=== PATIENT | male | born 1950 | race Caucasian/White ===

== ENCOUNTER → 2018-07-22 12:49 | Outpatient (CLI) | payer SELFPAY ==
--- NOTE | 2018-07-22 12:54 | CT_ITS ---
STUDY: CT CHEST WITHOUT CONTRAST REASON FOR EXAM: Male, 68 years old. Hyperlipidemia. Calcium scoring examination. Radiological over read study. RADIATION DOSAGE (If Supplied By Facility): CTDIvol = ( 12.19 ) mGy, DLP = ( 243.79 ) mGycm TECHNIQUE: Transaxial imaging was performed without the administration of intravenous contrast material. Individualized dose optimization techniques were used for this CT. COMPARISON: None. FINDINGS: Mild increased interstitial markings at the lung bases suggestive of mild bibasilar scarring. There is no demonstrated pleural abnormality. There are calcifications of the coronary arteries. There are multiple small lymph nodes within the mediastinum, which are normal in size and morphology most compatible with reactive lymph hyperplasia. Normal hilar regions. Normal unenhanced pulmonary arteries. There is atherosclerotic calcification of the aortic arch . There are multi-level degenerative changes of the thoracic spine. There is no demonstrated abnormality of the visualized upper abdomen. CT/Limited Chest CT w/CCTA IMPRESSION: Coronary artery calcification. Findings suggestive of mild bibasilar linear scarring. Electronically Signed: Lewis Colon, at 13:30 EST , Service support ,
[2018-07-22 13:11] VITALS: BP 138/84; PULSE 75; RESP 16; O2SAT 97; BMI 32.5
--- NOTE | 2018-07-22 15:17 | CA.SCORE ---
Calcium Scoring Date of Study:: 07/22/18 Coronary Calcium Scoring: Coronary calcium scoring. High-resolution computed tomographic imaging of the chest was performed on 07/22/2018 with particular attention paid to the coronary arteries. Images from the examination were analyzed for the presence and extent of coronary artery calcification using the coronary calcification software. The patient tolerated the procedure well there were no complications. The results of the coronary calcification analysis are provided below. Coronary artery Left main score 0 Left anterior descending artery score 0 Left circumflex artery score 0. Right coronary artery score 0 Total Agaston score 0. The above puts the patient in the 0 percentile ranking. Conclusion: The above is suggestive of no identifiable atherosclerotic plaquing with very low cardiovascular disease risk.
== END ==
PROVIDERS: Family Provider Internal Medicine; PCP Internal Medicine; Referring Provider Internal Medicine; Visit Provider Internal Medicine
DX: E78.5 Hyperlipidemia, unspecified (principal)
CPT/HCPCS: 75571; 76380

== ENCOUNTER → 2018-09-18 11:12 | Outpatient (CLI) | payer MEDICARE, OTHER, SELFPAY ==
[2018-07-22 13:11] VITALS: BMI 32.5
--- NOTE | 2018-09-18 11:14 | US_ITS ---
STUDY: RENAL ULTRASOUND - COMPLETE REASON FOR EXAM: Male, 68 years old. Urinary incontinence TECHNIQUE: Ultrasound evaluation of the kidneys was performed with real-time and static donnelly-scale imaging. COMPARISON: None available. FINDINGS: RIGHT KIDNEY: Normal location of the right kidney, which is normal in size. The right kidney measures 11.4 cm. There is a normal cortex of the right kidney. There is an 8 mm cyst in the right kidney. There are no right renal calculi. There is no right hydronephrosis. DISTAL RIGHT URETER: There is non-visualization of the distal right ureter. There is no demonstrated right ureterovesical junction calculus. There is a visualized right ureteral jet. LEFT KIDNEY: Normal location of the left kidney, which is normal in size. The left kidney measures 11.4 cm. There is a normal cortex of the left kidney. There is no left renal mass or cyst. There are no left renal calculi. There is no left hydronephrosis. DISTAL LEFT URETER: There is non-visualization of the distal left ureter. There is no demonstrated left ureterovesical junction calculus. There is a visualized left ureteral jet. BLADDER: The urinary bladder contains a volume of 194 cc and a postvoid volume of 55 cc. There is a 9 x 7 mm hyperechoic lesion along the posterior wall of the urinary bladder which is of uncertain etiology. US/Kidney and Bladder IMPRESSION: Subcentimeter cyst in the right kidney. Otherwise, normal kidneys. No hydronephrosis. Postvoid residual of 55 cc in the urinary bladder. 0.9 x 0.7 cm hyperechoic focus along the posterior wall of urinary bladder which is of uncertain etiology. If indicated, further evaluation with CT can be performed. Electronically Signed: Ricardo Jackson, at 20:06 EDT Tel , Service support ,
== END ==
PROVIDERS: Family Provider Internal Medicine; PCP Internal Medicine; Referring Provider Internal Medicine; Visit Provider Internal Medicine
DX: N39.41 Urge incontinence (principal)
CPT/HCPCS: 76770

== ENCOUNTER → 2018-09-25 07:26 | Outpatient (CLI) | payer MEDICARE, OTHER, SELFPAY ==
[2018-07-22 13:11] VITALS: BMI 32.5
--- NOTE | 2018-09-25 06:38 | CT_ITS ---
STUDY: CT PELVIS WITH CONTRAST REASON FOR EXAM: Male, 68 years old. History of bladder mass. RADIATION DOSAGE (If Supplied By Facility): CTDIvol = ( 22.49 ) mGy, DLP = ( 1171.81 ) mGycm TECHNIQUE: Transaxial imaging of the pelvis was performed without oral contrast. 100 IV Isovue 300 was administered intravenously. Multiplanar coronal and sagittal images were reformatted. Individualized dose optimization techniques were used for this CT. COMPARISON: None. FINDINGS: Normal urinary bladder. Prostate is enlarged. It measures 4.2 cm x 3.8 cm. This causes indentation at the bladder base. Normal visualized small intestine. There are multiple colonic diverticula of the sigmoid colon consistent with chronic diverticulosis. There is no pelvic fluid. There is no pelvic lymphadenopathy or mass lesion. There is no demonstrated injury of the pelvic arteries. There is a left inguinal hernia containing fat. There are diffuse degenerative changes of the visualized lumbar spine. CT/Pelvis WITH IV Contrast IMPRESSION: Prostatic enlargement with indentation of the bladder base. No definite bladder mass is seen. Electronically Signed: Lewis Colon, at 15:27 EDT , Service support ,
[2018-09-28 11:08] LABS: CREATININE FINGERSTICK 1.56 mg/dL (0.70-1.30); EGFR FINGERSTICK 35 mL/min (>60)
== END ==
PROVIDERS: Family Provider Internal Medicine; PCP Internal Medicine; Referring Provider Internal Medicine; Visit Provider Internal Medicine
DX: N32.89 Other specified disorders of bladder (principal); Z01.812 Encounter for preprocedural laboratory examination
CPT/HCPCS: 72193; Q9967

== ENCOUNTER → 2019-09-07 | Outpatient (CLI) | payer MEDICARE, OTHER, SELFPAY ==
[2018-07-22 13:11] VITALS: BMI 32.5
--- NOTE | 2019-09-07 11:30 | MRI_ITS ---
STUDY: MRI BRAIN WITH AND WITHOUT CONTRAST REASON FOR EXAM: Male, 69 years old. Known multiple sclerosis, memory loss x 1.5 yrs, concern for NPH TECHNIQUE: Standardized multiplanar fat and water weighted pulse sequences were obtained. 20ml Dotarem via IV was administered for the contrast portion of the examination. COMPARISON: None. FINDINGS: There is disproportionate ventricular enlargement with prominence of the anterior horns and temporal tips of the bilateral lateral ventricles. There is confluent periventricular hyperintensity cloaking the lateral ventricles. There is thinning with bowing of the corpus callosum. There is moderate enlargement of the third ventricle. The findings are highly suggestive of normal pressure hydrocephalus (NPH). There are a limited number of small white matter hyperintensities, distributed throughout the deep white matter tracts of the cerebral hemispheres, consistent with mild chronic white matter ischemic changes. There is no evidence for recent intracranial ischemia or other cause of cytotoxic edema on diffusion weighted imaging (DWI). Normal bilateral basal ganglia. Normal thalami. There is no extra-axial fluid accumulation. Normal flow voids within the major intracranial circulation suggesting patency by spin echo criteria. Normal venous enhancement. There is no enhancing intra-axial or extra-axial abnormality. Normal sella turcica, pituitary gland, infundibular stalk, optic chiasm and hypothalamus. Normal tectal plate and pineal gland. Normal midbrain, isaias and medulla. Normal cerebellum. Normal basal cisterns. Normal bilateral temporal bones. Normal bilateral internal auditory canals. No demonstrated orbital abnormality, within the constraints of a routine brain study. Normal visualized paranasal sinuses. Normal calvarium and skull base. Normal visualized soft tissue structures. Normal visualized upper cervical spine. MRI/Brain W/WO Contrast IMPRESSION: Suspect normal pressure hydrocephalus. Electronically Signed: Mauricio Juárez MD at 12:47 EDT Tel , Service support ,
== END | disposition home or self-care (01) ==
LOC: MRI 11:00
PROVIDERS: PCP Internal Medicine; Referring Provider Internal Medicine; Visit Provider Internal Medicine
DX: G35 Multiple sclerosis (principal)
CPT/HCPCS: 70553; A9575

== ENCOUNTER 2019-09-11 13:00 | Inpatient (IN) | payer MEDICARE, OTHER, SELFPAY ==
[2018-07-22 13:11] VITALS: BMI 32.5
[2019-09-11] VITALS (25 sets, daily range): BP systolic 105–149; BP diastolic 69–126; PULSE 82–148; RESP 12–20; TEMP 36.1–39; O2SAT 94–100; BMI 32.5; BMI 31.7; BMI 31.8
[2019-09-11] MEDS: Etomidate 20 MG/10 ML Vial IV (13:03)
--- NOTE | 2019-09-11 13:03 | RAD_ITS ---
STUDY: X-RAY CHEST REASON FOR EXAM: Male, 69 years old. Found unresponsive TECHNIQUE: AP supine portable view. COMPARISON: PA and lateral views of the chest 01/17/2017. FINDINGS: NG tube sidehole is in the duodenal bulb area and the NG tube is further down in the descending portion of the duodenum if not in the horizontal portion of the duodenum. The NG tube tip is not included in the scan. Subglottic position of the ET tube tip. Distal repositioning will be helpful. Mild pulmonary hypoinflation. Minimal subsegmental atelectases in the left infrahilar region. No confluent infiltrates. There is no demonstrated pleural abnormality. Normal size heart. Normal mediastinum and spenser. Normal visualized pulmonary arteries. Normal visualized aortic arch and descending thoracic aorta. Normal visualized thoracic spine. Normal visualized ribs, clavicles, and shoulders. There is no demonstrated abnormality of the visualized soft tissue structures of the upper abdomen. RAD/Chest 1 View IMPRESSION: 1. Minimal subsegmental atelectasis in the left infrahilar region in a limited inspiratory chest radiograph. 2. NG tube sidehole is in the proximal duodenum. The NG tube tip is not included in the scan and this at least in the descending duodenum if not in the horizontal portion of the duodenum. 3. Subglottic position of the endotracheal tube tip. Distal repositioning will be helpful. Electronically Signed: Yoav Schuler MD at 14:29 EDT , Service support ,
--- NOTE | 2019-09-11 13:03 | CT_ITS ---
We are attempting to reach an attending provider to discuss findings. An addendum with communication details will be sent when the communication is complete. STUDY: CT BRAIN WITHOUT CONTRAST REASON FOR EXAM: Male, 69 years old. UNRESPONSIVE, HX-MS RADIATION DOSAGE (If Supplied By Facility): CTDIvol = ( 44.99 ) mGy, DLP = ( 829.85 ) mGycm TECHNIQUE: Transaxial CT imaging of the brain was performed without administration of intravenous contrast material. Coronal and sagittal reconstructions were performed. Individualized dose optimization techniques were used for this CT. COMPARISON: MRI brain with and without contrast 09/07/2019. FINDINGS: Normal soft tissue structures. Normal calvarium. Normal size ventricles and extra-axial spaces for the patient''s age. Hypodensities in the white matter of both cerebral hemispheres are chronic white matter ischemic changes. No midline shift and no mass effects. Normal basal ganglia and thalami. Normal brainstem. Normal cerebellum. There is no intracranial hemorrhage. There are no findings of an acute ischemic infarction. Normal visualized paranasal sinuses. CT/Brain/Head without Contrast IMPRESSION: 1. No CT evidence of intracranial bleeding, acute ischemic infarct or acute intracranial abnormality at this time. 2. Chronic white matter ischemic changes in both cerebral hemispheres. Electronically Signed: Yoav Schuler MD at 13:51 EDT , Service support ,
--- NOTE | 2019-09-11 13:03 | EKG12_ITS ---
Test Reason : UNRESPONSIVE Blood Pressure : / mmHG Vent. Rate : 144 BPM Atrial Rate : 055 BPM P-R Int : 000 ms QRS Dur : 096 ms QT Int : 318 ms P-R-T Axes : 000 008 114 degrees QTc Int : 492 ms Supraventricular tachycardia Nonspecific ST and T wave abnormality Abnormal ECG Confirmed by SHERRY VIVAS, ANGELLA ([id number]), editor producer FLETCHER LUND ([id number]) on 09/13/2019 10:02:24 AM Referred By: SHAAN Confirmed By:ANGELLA POWELL MD
[2019-09-11] MEDS: Rocuronium Bromide 50 MG/5 ML Vial 100 MG IV (13:04)
--- NOTE | 2019-09-11 13:07 | ED.VIS.STROK ---
History of Present Illness Chief Complaint: Unresponsive Informant: Communications Senior Associate Onset: Hours Context: Sudden Onset Timing: Continuous Quality and Location: - - Disconjugate gaze, pinpoint pupils nonverbal Current Severity: Severe Maximum Severity: Severe Worsened by: Unknown Relieved by: Nothing Associated Symptoms: - - Unknown Narrative: Patient is a 6-year-old male who was recently diagnosed with normal pressure hydrocephalus who contact his primary care physician. called squad. Upon arrival he is nonverbal. Opens eyes to noxious stimuli and localizes with the right upper extremity only. No other history is available. Spoke to when she arrived. He was last seen well at 2300 on September 09. She states she normally does not let him sleep past 10:00. He was not up at 10 PM when she went to check on him at 11 he was not very responsive. Therefore he is not a candidate for thrombolytics. Per primary care physician patient was recently started on Aricept. Prior similar symptoms: No Recent Illness/Hospitalization: Yes - Normal pressure hydrocephalus - Past Medical History (1) Normal pressure hydrocephalus Status: Acute (2) Multiple sclerosis Status: Chronic Past Medical History - Allergies and Home Meds Allergies/Adverse Reactions: Allergies No Known Allergies Allergy (Verified 09/11/19 14:36) Primary Care Physician: Ale Linares MD [Primary Care Provider] - Prior records reviewed: Yes Lives: Spouse/ Significant Other Drugs: - - Unable to determine Review of Systems ROS: Unable to Obtain STROKE Inital Vital Signs reviewed: Yes - NIHSS Initial 1a Level of Consciousness: 3 1b LOC Questions (Score 2 if aphasic/stupor): 2 1c LOC Commands (Only score 1st attempt): 2 2 Best Gaze (If aphasic, use reflexive mvmts.): 2 - Unable to determine. 3 Visual: 3 - Patient is not respond to confrontation 5 Motor Arm Right (UN = amputation/fusion): 0 5 Motor Arm Left: 2 6 Motor Leg Right: 0 6 Motor Leg Left: 2 7 Limb ataxia (Only + if out of proportion): UN 8 Sensory (Aphasia/stupor=0 or 1, coma=2): 1 9 Best Language: 3 10 Dysarthria (mute, coma=2, intubated=UN): 2 11 Extinction and Inattention (only scored if +): 2 Total Score: 24 General: Well nourished, Well developed Head: Normocephalic, Atraumatic. Negative for: Trauma, Tenderness Eyes: - - Pupils are pinpoint. Gaze is disconjugate. There is no nystagmus.. Negative for: Perrl, EOMI, Pale conjunctiva, Scleral icterus ENT: Moist mucous membranes, No rhinorrhea Neck: Supple, Nontender, No lymphadenopathy, No JVD, - - No carotid bruit. Cardiovascular: No murmurs, Normal S1, Normal S2, Tachycardia Respiratory: No distress, CTA bilaterally, Chest nontender Abdomen: Soft, Nontender, Nondistended, Normal bowel sounds, No masses Rectal: Deferred Back: Normal Inspection Extremities: Nontender Skin: Diaphoresis, Pallor, - - Swain appears slightly mottled. Neurological: Normal DTR - Babinski sign on the left equivocal Babinski sign on right. Negative for: Alert, Oriented x3, Cranial nerves II-XII grossly intact, Normal Strength, Normal Sensation, Normal Gait Diagnostic/Tx/Re-eval Dr. Linares, patient's primary care physician, call prior to his arrival. He had altered mental status according to Dr. Linares. Upon arrival patient is unresponsive to verbal or tactile stimuli. He opens his eyes to noxious stimuli and localizes on the right side only. Differential is massive stroke, intracranial bleed, will obtain CT of the head with and without contrast including CTA of the head and neck. Stroke order set was initiated. Because patient has a GCS of 8. He received 2 points for opening eyes to noxious stimuli. 1.4 no response to noxious stimuli and 5 points because he localized to pain. Patient was placed on a nonrebreather. He received 20 mg of etomidate followed by 100 mg rocuronium. He was easily orotracheally debated with use of glide scope. A 7.5 Macedonian endotracheal tube was placed. Tube is 24 cm at the teeth. Will obtain chest x-ray to verify tube placement. Patient was taken emergently to radiology suite for CT of the head and CTA of the head and neck. Impressions Brain CT 09/11/19 13:03 IMPRESSION: 1. No CT evidence of intracranial bleeding, acute ischemic infarct or acute intracranial abnormality at this time. 2. Chronic white matter ischemic changes in both cerebral hemispheres. Electronically Signed: Yoav Schuler MD at 13:51 EDT , Service support , ADDENDUM: 09/11/19 1402 IMPRESSION: 1. No CT evidence of intracranial bleeding, acute ischemic infarct or acute intracranial abnormality at this time. 2. Chronic white matter ischemic changes in both cerebral hemispheres. N.B. : The above information has been verbally conveyed by Yoav Schuler MD to Willie Bartholomew MD, on 09/11/2019 13:55:49 (ET). Electronically Signed: Yoav Schuler MD at 13:51 EDT , Service support , Chest X-Ray 09/11/19 13:03 IMPRESSION: 1. Minimal subsegmental atelectasis in the left infrahilar region in a limited inspiratory chest radiograph. 2. NG tube sidehole is in the proximal duodenum. The NG tube tip is not included in the scan and this at least in the descending duodenum if not in the horizontal portion of the duodenum. 3. Subglottic position of the endotracheal tube tip. Distal repositioning will be helpful. Electronically Signed: Yoav Schuler MD at 14:29 EDT , Service support , Head/Neck CTA 09/11/19 13:37 IMPRESSION: 1. Normal CTA head without suspicious vaso-occlusive disease of the anterior and posterior intracranial circulation. 2. Widely patent right posterior communicating artery with a hypoplastic right P1 segment. 3. Hypoplastic left vertebral artery terminating directly into the left PICA (posterior inferior cerebellar artery). 4. Widely patent bilateral common carotid arteries, bilateral common carotid bifurcations, bilateral internal and external carotid arteries and bilateral vertebral arteries. 5. Less than 20% smooth stenosis of the dominant right vertebral artery at its subclavian origin. 6. Widely patent aortic arch and origins of the great vessels. Electronically Signed: Yoav Schuler MD at 14:14 EDT , Service support , 09/11/19 13:03 Brain/Head without Contrast [CT] Stat Chest 1 View [RAD] Stat 09/11/19 13:37 CTA Head AND Neck W/ Contrast [CT] Stat Laboratory Results 09/11/19 09/11/19 09/11/19 13:10 13:10 13:10 WBC 29.9 H RBC 5.12 Hgb 16.4 Hct 46.4 MCV 90.6 MCH 32.0 MCHC 35.3 RDW Std Deviation 38.4 RDW Coeff of Keke 11.8 Plt Count 269 MPV 9.8 Immature Gran % (Auto) 1.100 H Neut % (Auto) 86.6 H Lymph % (Auto) 2.9 L Harnett % (Auto) 9.1 Eos % (Auto) 0.1 Baso % (Auto) 0.2 Absolute Neuts (auto) 25.9 H Absolute Lymphs (auto) 0.86 Nucleated RBC % 0 Differential Comment SCANNED Diff Path Review May foll PT 13.3 INR 1.1 APTT 27.1 Sodium 139 Potassium 3.6 Chloride 106 Carbon Dioxide 24.0 Anion Gap 9 BUN 20 H Creatinine 1.25 Estim Creat Clear Calc 58.57 Est GFR (MDRD) Af Amer 73 Est GFR (MDRD) Non-Af 61 BUN/Creatinine Ratio 16.0 Glucose 124 H Lactic Acid Calcium 9.6 Troponin I < 0.015 Urine Color Urine Clarity Urine pH Ur Specific [place] Urine Protein Urine Glucose (UA) Urine Ketones Urine Occult Blood Urine Nitrite Urine Bilirubin Urine Urobilinogen Ur Leukocyte Esterase Urine RBC Urine WBC Ur Squamous Epith Cells Urine Bacteria Hyaline Casts Fine Granular Casts Urine Mucus 09/11/19 09/11/19 13:10 14:48 WBC RBC Hgb Hct MCV MCH MCHC RDW Std Deviation RDW Coeff of Keke Plt Count MPV Immature Gran % (Auto) Neut % (Auto) Lymph % (Auto) Harnett % (Auto) Eos % (Auto) Baso % (Auto) Absolute Neuts (auto) Absolute Lymphs (auto) Nucleated RBC % Differential Comment Diff Path Review PT INR APTT Sodium Potassium Chloride Carbon Dioxide Anion Gap BUN Creatinine Estim Creat Clear Calc Est GFR (MDRD) Af Amer Est GFR (MDRD) Non-Af BUN/Creatinine Ratio Glucose Lactic Acid 2.0 Calcium Troponin I Urine Color Yellow Urine Clarity Cloudy Urine pH 5.0 Ur Specific [place] 1.015 Urine Protein 500 H Urine Glucose (UA) Normal Urine Ketones 15 H Urine Occult Blood 150 H Urine Nitrite Positive H Urine Bilirubin Negative Urine Urobilinogen Normal Ur Leukocyte Esterase 500 H Urine RBC 0-5 SEEN Urine WBC 5-10 SEEN Ur Squamous Epith Cells 0-5 SEEN Urine Bacteria 1+ Hyaline Casts 0-5 SEEN Fine Granular Casts 0-5 SEEN Urine Mucus RARE Urine reveals occult blood, nitrites, leukoesterase with pyuria and 1+ bacteria. Presume this is the source of his infection. Antibiotics can be changed. Chest X-Ray - ED: 1 View, Read by Radiologist, - - Tracheal tube is 4.5 cm above the talib. OG is in proper position. Limited inspiratory volume. There is increased interstitial markings which in my opinion is due to poor inspiratory volume. Cardiac silhouette is normal. No fractures noted i.e. ribs, clavicle or proximal humerus. There is no evidence of pneumothorax., 1417 - Rhythm Strip Rhythm Strip: Narrow complex tachycardia Rate: 148 Ectopy: None - EKG Initial EKG Interpretation: - - Narrow complex tachycardia rate of 147. There is no ossific ST-T wave changes noted. There is no acute ischemic changes noted. Concerned this may represent atrial flutter. - Medical Decision Making Stroke Team Activated: No Reviewed Inclusion/Exclusion criteria: Yes IV Alteplase (t-PA) Administered: No No contraindications for IV Alteplase (t-PA) administration.: No - Patient last known well 2300 which is well past acceptable time to receive Alteplase (t-PA) risks, benefits, alternative discussed: No Previously documented Spoke with the neurologist at [facility] at 1345. She reviewed CT and CTA. She sees no obvious stroke or evidence of clot in the left middle cerebral distribution, right middle cerebral distribution or the posterior circulatory system. Since there is no evidence of stroke and patient has a white count of 29.9 thousand will treat with antibiotics for unknown source. I was asked to see the patient at 1414. He is now following commands. His blood pressure is improved. He is slightly out of sync with the ventilator. Will place on small dose of propofol for sedation. Critical care time (excluding procedures): 30-74 minutes - Critical care time 42 minutes this included discussion with paramedics and review of prior records. Discussion with consultants. Arrangement for admission/transfer and direct patient care. This also included time to perform physical and documentation of history and physical. ED Disposition - Plan for ED Patient: Disposition: Acute Care Hospital [facility] Diagnosis: Respiratory failure requiring intubation, Sepsis due to urinary tract infection Referrals: Ale Linares MD [Primary Care Provider] -
--- NOTE | 2019-09-11 13:22 | ED.RN ---
patient opening eyes but unable to follow commands and is incontinent.
[2019-09-11 13:30] LABS: Absolute Lymphocyte Count 0.86 X10^3/uL (0.83-4.51); Absolute Neutrophil Count 25.9 X10^3/uL (2.0-7.7); Basophil# 0.07 X10^3/uL; Basophil% 0.2 % (0-1); Eosinophil# 0.02 X10^3/uL; Eosinophils% 0.1 % (0-5); Hematocrit 46.4 % (40-54); Hemoglobin 16.4 g/dL (13.0-16.5); Lymphocyte # 0.86 X10^3/ul (4.0); Lymphocyte % 2.9 % (19-41); Mean Corp Hgb Conc 35.3 g/dL (32-36); Mean Corpuscular Volume 90.6 fL (80-94); Mean Platelet Vol. 9.8 fl (6.2-12.0); Monocyte# 2.73 X10^3/uL; Monocyte% 9.1 % (0-10); NRBC Flagged by Analyzer 0 % (0-5); Neutrophil # 25.88 X10^3/uL (2.7-7.7); Neutrophil % 86.6 % (47-70); POSITIVE DIFFERENTIAL YES; Platelet Count 269 K/mm3 (150-450); RBC Distribution Width CV 11.8 % (11.6-14.6); RBC Distribution Width SD 38.4 fl (35.1-43.9); Red Blood Count 5.12 M/mm3 (4.6-6.2); White Blood Count 29.9 K/mm3 (4.4-11.0)
[2019-09-11 13:33] LABS: Differential Indicated SCAN CRITERIA MET
--- NOTE | 2019-09-11 13:37 | CT_ITS ---
STUDY: CTA HEAD AND NECK WITH CONTRAST REASON FOR EXAM: Male, 69 years old. UNRESPONSIVE, HX-MS, MEMORY LOSS X 1.5 YRS. RADIATION DOSAGE (If Supplied By Facility): CTDIvol = ( 20.7 ) mGy, DLP = ( 776.31 ) mGycm TECHNIQUE: CT angiography was performed with a multi-detector CT scanner. Data acquisition was obtained from the skull base through the vertex following intravenous administration of 100 mL of Isovue-370. MIP images were reconstructed from the axial data set. Post-processing of the angiographic images was performed, with multiplanar reformation and 3D reconstruction. Individualized dose optimization techniques were used for this CT. COMPARISON: MRI brain with and without contrast 09/07/2019. CT brain without contrast 09/11/2019. FINDINGS: Normal bilateral petrous carotid arteries. Normal right cavernous carotid artery with a normal supraclinoid bifurcation. Normal left cavernous carotid artery with a normal supraclinoid bifurcation. Normal right A1 segment of the anterior cerebral artery. Normal left A1 segment of the anterior cerebral artery. Normal intact anterior communicating artery (ACOM). Normal bilateral A2 segments of the anterior cerebral arteries. Normal right M1 and M2 segments of the middle cerebral arteries, with a normal M1 bifurcation. Normal left M1 and M2 segments of the middle cerebral arteries, with a normal M1 bifurcation. Widely patent right posterior communicating artery (PCOM) with a hypoplastic right P1 segment. Normal left posterior communicating artery (PCOM). Normal bilateral vertebral arteries. The right is dominant. The left terminates directly into the left PICA. Normal basilar artery with a normal basilar bifurcation. The visualized bilateral superior cerebellar (SCA) arteries are normal. Hypoplastic right P1 segment. Normal bilateral P1, P2 and visualized P3 segments of the posterior cerebral arteries. There is no demonstrated aneurysm of the [place]. There is no demonstrated abnormality of the visualized brain. AORTIC ARCH: Normal visualized aortic arch. Normal origins of the brachiocephalic, left common carotid, and left subclavian arteries. RIGHT CAROTID ARTERIES: Normal right common carotid artery (CCA). Normal right internal carotid bulb. Normal origin of the right internal carotid (ICA) artery without a hemodynamically significant stenosis. Normal visualized cervical portion of the right internal carotid artery. Normal origin of the right external carotid artery (ECA). LEFT CAROTID ARTERIES: Normal left common carotid artery (CCA). Normal left internal carotid bulb. Normal origin of the left internal carotid (ICA) artery without a hemodynamically significant stenosis. Normal visualized cervical portion of the left internal carotid artery. Normal origin of the left external carotid artery (ECA). VERTEBRAL ARTERIES: Normal bilateral vertebral arteries. The left is hypoplastic and terminates directly into the left PICA (posterior inferior cerebellar artery does). Less than 20% spinal stenosis at the subclavian origin of the dominant right vertebral artery. CT/CTA Head AND Neck W/ Contrast IMPRESSION: 1. Normal CTA head without suspicious vaso-occlusive disease of the anterior and posterior intracranial circulation. 2. Widely patent right posterior communicating artery with a hypoplastic right P1 segment. 3. Hypoplastic left vertebral artery terminating directly into the left PICA (posterior inferior cerebellar artery). 4. Widely patent bilateral common carotid arteries, bilateral common carotid bifurcations, bilateral internal and external carotid arteries and bilateral vertebral arteries. 5. Less than 20% smooth stenosis of the dominant right vertebral artery at its subclavian origin. 6. Widely patent aortic arch and origins of the great vessels. Electronically Signed: Yoav Schuler MD at 14:14 EDT , Service support ,
[2019-09-11 13:39] LABS: International Normalized Ratio 1.1; Partial Thromboplast Time 27.1 Seconds (24.1-36.2); Prothrombin Time (Protime)PT. 13.3 SECONDS (11.7-14.9)
[2019-09-11 13:48] LABS: Anion Gap 9 (5-15); BUN 20 mg/dL (7-18); Calcium,Total 9.6 mg/dL (8.5-10.1); Chloride 106 mmol/L (98-107); Creatinine, Serum 1.25 mg/dL (0.70-1.30); EST Glomerular Filtration Rate 61 mL/min (>60); Est Glom Filt Rate - Afr Amer 73 mL/min (>60); Estimated Creatinine Clearance 58.57 ml/min; Glucose 124 mg/dL (74-106); Potassium 3.6 mmol/L (3.5-5.1); Sodium Level 139 mmol/L (136-145)
--- NOTE | 2019-09-11 13:55 | ED.RN ---
PATIENT IS NOW RESPONDING TO VERBAL STIMULI AND ABLE TO FOLLOW COMMANDS. DR. GARDUNO NOTIFIED.
--- NOTE | 2019-09-11 14:07 | CM.ED ---
Social Work Consult: Unresponsive Met patient spouse, active listening and support provided. Dr. Bartholomew updating patient spouse on medical condition of patient. Patient spouse with family member now present. Patient prior level of functioning was independent and was doing fine per patient spouse. Patient does have a history of MS. Will continue to follow as needed. Enma Whelan MSW, FELIX
[2019-09-11 14:14] LABS: Differential Comment SCANNED
[2019-09-11] MEDS: Propofol 200 MG/20 ML Vial 40 MG IV BOLUS (14:25)
[2019-09-11] MEDS: Propofol 10MG/Ml 1,000 MG/100 ML Bottle 6.4 MG CONT INF (14:33)
[2019-09-11 14:54] LABS: Color, Urine Yellow (Yellow); Glucose, Dipstick Normal (Normal); Ketone-Dipstick 15 mg/dl (Negative); Leukocyte Esterase-Dipstick 500 /ul (Negative); Nitrite-Dipstick Positive (Negative); Occult Blood-Urine 150 /ul (Negative); Protein-Dipstick 500 mg/dl (Negative); Specific Gravity, Urine 1.015 (1.002-1.030); Urine Bilirubin Dipstick Negative (Negative); Urine Clarity Cloudy (Clear); Urine Urobilinogen Normal (Normal)
--- NOTE | 2019-09-11 14:58 | ED.RN ---
UNABLE TO COMPLETE NIH STROKE SCALE. PATIENT IS UNRESPONSIVE AND NOT FOLLOWING COMMANDS.
[2019-09-11 15:00] LABS: Bacteria 1+ /hpf (None Seen); Fine Granular Cast- Urine 0-5 SEEN /lpf (0-5); Hyaline Cast 0-5 SEEN /lpf (0-5); Mucous, Urine RARE /hpf (<or=2+); Red Blood Cells-Urine 0-5 SEEN /hpf (0-5); Squamous Epithelial Cells - UA 0-5 SEEN /hpf (0-5); White Blood Cells 5-10 SEEN /hpf (0-5)
--- NOTE | 2019-09-11 15:05 | ED.RN ---
UNABLE TO PERFORM NIH STROKE SCALE, PATIENT INTUBATED.
--- NOTE | 2019-09-11 15:06 | ED.RN ---
UNABLE TO PERFORM NIH STROKE SCALE, PATIENT INTUBATED.
--- NOTE | 2019-09-11 15:47 | HP.PCM_ITS ---
Problem List (1) Respiratory failure requiring intubation Status: Acute (2) Sepsis due to urinary tract infection Status: Acute (3) Multiple sclerosis Status: Chronic (4) Normal pressure hydrocephalus Status: Acute History of Present Illness Date of Admission: 09/11/19 Chief Complaint: Unresponsiveness The patient is a 69 year old M who was brought to the emergency department by the family on account of unresponsiveness. Patient was apparently in his usual state of health when he became responsive around noon on the day of his admis davey. Patient was brought to the emergency department initial head CT was negative for acute CVA. Patient was however found to have markedly elevated WBC count 30,000. Patient urinalysis was slightly abnormal with positive nitrites and leukocyte esterase of 500 with 5-10 WBC count in the urine. Patient was apparently not protecting his airway resulting in patient being intubated in the ED by Dr. Bartholomew with a working diagnosis of acute encephalopathy as a result of sepsis secondary to acute cystitis was made admitted for further inpatient evaluation. Past Medical History Past Medical History (Chronic Problems): Chronic Problems Multiple sclerosis (Chronic) Allergies No Known Allergies Allergy (Verified 09/11/19 14:36) Lives: Spouse/ Significant Other Drugs: - - Unable to determine - *Family History Maternal History Items: - - Unable to obtain patient on the vent Review of Systems Unable to obtain accurate/complete ROS d/t: Patient on the vent VTE Information - Inpt Only VTE Present on Admission: No VTE Mechan Device Prophylaxis: SCD's VTE Pharm Prophylaxis ordered?: Yes Patient Problems: Active and Suspected Problems Respiratory failure requiring intubation (Acute) Sepsis due to urinary tract infection (Acute) Objective: GENERAL: Sedated on the vent HEENT: ET tube in place EYES; Anicteric, NECK; supple, normal thyroid, RESPIRATORY: Diminished to auscultation CARDIOVASCULAR: Regular S1 S2, GI: soft, normoactive bowel sounds, : No Renal angle tenderness; EXTREMITIES: No edema, no clubbing, MUSCULOSKELETAL: no muscle waisting NEURO: Sedated on the vent SKIN: No Rash - Physical Exam Vitals/I&O's: Vital Signs Temp Pulse Resp BP Pulse Ox 98.3 F 116 H 18 105/88 H 100 09/11/19 15:37 09/11/19 15:37 09/11/19 15:37 09/11/19 15:37 09/11/19 15:37 Oxygen Flow Rate (L/min) 185 Oxygen Delivery Method Mechanical Ventilator Weight: 105.9 kg Body Mass Index (BMI) 32.5 Finger Stick Blood Glucose 130 Intake and Output for Last 24 Hours 09/09/19 09/10/19 09/11/19 23:59 23:59 23:59 Intake Total 106.72 / 106.72 Balance 106.72 / 106.72 Laboratory Results 09/11/19 13:10: WBC 29.9 H, RBC 5.12, Hgb 16.4, Hct 46.4, MCV 90.6, MCH 32.0, MCHC 35.3, RDW Std Deviation 38.4, RDW Coeff of [place] 11.8, Plt Count 269, MPV 9.8, Immature Gran % (Auto) 1.100 H, Neut % (Auto) 86.6 H, Lymph % (Auto) 2.9 L, Bartholomew % (Auto) 9.1, Eos % (Auto) 0.1, Baso % (Auto) 0.2, Absolute Neuts (auto) 25.9 H, Absolute Lymphs (auto) 0.86, Nucleated RBC % 0, Differential Comment SCANNED, Diff Path Review September09/11/19 13:10: PT 13.3, INR 1.1, APTT 27.1 09/11/19 13:10: Sodium 139, Potassium 3.6, Chloride 106, Carbon Dioxide 24.0, Anion Gap 9, BUN 20 H, Creatinine 1.25, Estim Creat Clear Calc 58.57, Est GFR (MDRD) Af Amer 73, Est GFR (MDRD) Non-Af 61, BUN/Creatinine Ratio 16.0, Glucose 124 H, Calcium 9.6, Troponin I < 0.015 09/11/19 13:10: Lactic Acid 2.0 09/11/19 14:48: Urine Color Yellow, Urine Clarity Cloudy, Urine pH 5.0, Ur Specific [place] 1.015, Urine Protein 500 H, Urine Glucose (UA) Normal, Urine Ketones 15 H, Urine Occult Blood 150 H, Urine Nitrite Positive H, Urine Bilirubin Negative, Urine Urobilinogen Normal, Ur Leukocyte Esterase 500 H, Urine RBC 0-5 SEEN, Urine WBC 5-10 SEEN, Ur Squamous Epith Cells 0-5 SEEN, Urine Bacteria 1+, Hyaline Casts 0-5 SEEN, Fine Granular Casts 0-5 SEEN, Urine Mucus RARE Current Medications Vancomycin HCl 2,000 mg/ (Sodium Chloride) 540 mls @ 250 mls/hr IV X1 ONE Stop: 09/11/19 16:39 Last Admin: 09/11/19 14:49 Dose: 250 mls/hr Documented by: Propofol (Diprivan) 1,000 mg in 100 mls @ 6.354 mls/hr CONT INF .Q12H TEDDY; Protocol Last Titration: 09/11/19 15:36 Dose: 15 mcg/kg/min, 9.5 mls/hr Documented by: Labetalol HCl (Trandate) 20 mg IV X1 PRN PRN Reason: BLOOD PRESSURE Assessment/Plan All Active Problems Normal pressure hydrocephalus (Acute) Respiratory failure requiring intubation (Acute) Sepsis due to urinary tract infection (Acute) Patient is a 69-year-old gentleman admitted with unresponsiveness and respiratory failure in addition to sepsis secondary to UTI 1. Acute encephalopathy Suspected to be secondary to sepsis as a result of UTI acute CVA was ruled out with a negative head CT 2. Acute hypoxic respiratory failure ?Secondary to patient being encephalopathic. Patient was intubated in the ED. x-ray obtained demonstrated Minimal subsegmental atelectasis in the left infrahilar region in a limited inspiratory chest radiograph patient currently being managed with ICU vent management order set with consultation placed to Dr. Farris with intensive care 3. Sepsis secondary to UTI ?Patient presented with acute encephalopathy. Had only mild pyuria with positive nitrites as well as leukocyte esterase. Rocephin initiated per protocol urine and blood culture sent 4. Multiple sclerosis ?Currently stable 5. DVT prophylaxis ~ on enoxaparin Clinical Impression(s) from Imaging Studies Brain CT 09/11/19 13:03 IMPRESSION: 1. No CT evidence of intracranial bleeding, acute ischemic infarct or acute intracranial abnormality at this time. 2. Chronic white matter ischemic changes in both cerebral hemispheres. Electronically Signed: Yoav Schuler MD at 13:51 EDT , Service support , ADDENDUM: 09/11/19 4725 IMPRESSION: 1. No CT evidence of intracranial bleeding, acute ischemic infarct or acute intracranial abnormality at this time. 2. Chronic white matter ischemic changes in both cerebral hemispheres. N.B. : The above information has been verbally conveyed by Yoav Schuler MD to Willie Bartholomew MD, on 09/11/2019 13:55:49 (ET). Electronically Signed: Yoav Schuler MD at 13:51 EDT , Service support , Chest X-Ray 09/11/19 13:03 IMPRESSION: 1. Minimal subsegmental atelectasis in the left infrahilar region in a limited inspiratory chest radiograph. 2. NG tube sidehole is in the proximal duodenum. The NG tube tip is not included in the scan and this at least in the descending duodenum if not in the horizontal portion of the duodenum. 3. Subglottic position of the endotracheal tube tip. Distal repositioning will be helpful. Electronically Signed: Yoav Schuler MD at 14:29 EDT , Service support , Head/Neck CTA 09/11/19 13:37 IMPRESSION: 1. Normal CTA head without suspicious vaso-occlusive disease of the anterior and posterior intracranial circulation. 2. Widely patent right posterior communicating artery with a hypoplastic right P1 segment. 3. Hypoplastic left vertebral artery terminating directly into the left PICA (posterior inferior cerebellar artery). 4. Widely patent bilateral common carotid arteries, bilateral common carotid bifurcations, bilateral internal and external carotid arteries and bilateral vertebral arteries. 5. Less than 20% smooth stenosis of the dominant right vertebral artery at its subclavian origin. 6. Widely patent aortic arch and origins of the great vessels. Electronically Signed: Yoav Schuler MD at 14:14 EDT , Service support , Inpatient E&M: [id number] Init Hosp L3
--- NOTE | 2019-09-11 16:18 | CM.ED ---
Social Work Telephone call to patient spouse, updating patient spouse on patient being admitted to ICU and what room. No further questions. Spouse reminded about visitation policy at this time and provided with number for ICU with any questions. Enma COY, FELIX
[2019-09-11 16:57] LABS: D-Dimer Quantitative (DVT/PE) 0.72 FEU/ug/m (0.27-0.49)
[2019-09-11 17:06] LABS: AST(SGOT) 29 U/L (15-37); Alanine Aminotransfer ALT/SGPT 56 U/L (16-61); Albumin, Serum 4.2 g/dL (3.2-5.0); Alkaline Phosphatase 91 U/L (45-117); Bilirubin, Direct 0.29 mg/dL (0.00-0.30); CPK Total, Creatine Kinase 95 U/L (39-308); Globulin 3.6 g/dL (2.2-4.2); Protein, Total 7.8 g/dL (6.4-8.2)
[2019-09-11 17:30] LABS: Procalcitonin 1.27 ng/mL (0.00-0.09)
[2019-09-11 17:46] LABS: Reflex Lactate? Y
[2019-09-11 18:45] LABS: Bedside Glucose 110 mg/dL (70-110)
[2019-09-11] MEDS: Acetaminophen 650 MG Suppository RECTAL (20:04)
[2019-09-11] MEDS: Propofol 10MG/Ml 1,000 MG/100 ML Bottle 12.7 MG CONT INF (20:04)
[2019-09-11] MEDS: Chlorhexidine 15 ML PO (20:05)
[2019-09-11 20:11] LABS: M R Staph aureus DNA By PCR Negative (Negative); Probe Check PASS; Specimen Processing Control PASS
[2019-09-11] MEDS: Ceftriaxone 1 GM/50 ML BAG IV (21:51)
[2019-09-12] VITALS (32 sets, daily range): BP systolic 94–175; BP diastolic 58–108; PULSE 80–114; RESP 12–28; TEMP 37.1–39.1; O2SAT 91–100
[2019-09-12] MEDS: Propofol 10MG/Ml 1,000 MG/100 ML Bottle 12.7 MG CONT INF (03:58)
[2019-09-12 04:35] LABS: Phosphorus 2.5 mg/dL (2.5-4.9)
[2019-09-12] MEDS: TITRATION PARAMETER CHANGE 1 EACH IV (04:45)
[2019-09-12 04:47] LABS: Absolute Neutrophil Count 15.1 X10^3/uL (2.0-7.7); Basophil# 0.05 X10^3/uL; Basophil% 0.3 % (0-1); Eosinophils% 1.1 % (0-5); Hematocrit 42.8 % (40-54); Hemoglobin 15.3 g/dL (13.0-16.5); Lymphocyte % 4.6 % (19-41); Mean Corp Hgb Conc 35.7 g/dL (32-36); Mean Corpuscular Hgb 32.9 pg (27.0-32.0); Mean Platelet Vol. 10.2 fl (6.2-12.0); Monocyte# 1.24 X10^3/uL; Monocyte% 7.1 % (0-10); NRBC Flagged by Analyzer 0 % (0-5); Neutrophil # 15.13 X10^3/uL (2.7-7.7); Neutrophil % 86.3 % (47-70); Platelet Count 200 K/mm3 (150-450); RBC Distribution Width CV 12.1 % (11.6-14.6); RBC Distribution Width SD 40.4 fl (35.1-43.9); Red Blood Count 4.65 M/mm3 (4.6-6.2); White Blood Count 17.5 K/mm3 (4.4-11.0)
[2019-09-12 05:03] LABS: Anion Gap 7 (5-15); BUN 18 mg/dL (7-18); BUN/Creat Ratio 17.6 RATIO (10-20); Calcium,Total 8.5 mg/dL (8.5-10.1); Chloride 110 mmol/L (98-107); Creatinine, Serum 1.02 mg/dL (0.70-1.30); EST Glomerular Filtration Rate 77 mL/min (>60); Est Glom Filt Rate - Afr Amer 93 mL/min (>60); Estimated Creatinine Clearance 69.58 ml/min; Glucose 125 mg/dL (74-106); Magnesium 1.9 mg/dL (1.6-2.6); Potassium 3.8 mmol/L (3.5-5.1); Sodium Level 139 mmol/L (136-145)
--- NOTE | 2019-09-12 06:02 | CON.PCM_ITS ---
Reason for Consult Date of Consultation: 09/12/19 Reason for Consultation: Acute respiratory failure History of Present Illness: The patient is a 69-year-old male, with a history as outlined below, who presented to the emergency department on September 10 with acute encephalopathy. The patient does apparently have a history of normal pressure hydrocephalus. History pertinent to the patient's hospitalization was obtained primarily via chart review, as the patient is currently intubated and there is no family available at the bedside. On presentation to the emergency department, the patient was noted to be afebrile but was tachycardic and hypoxemic. Laboratory evaluation revealed an elevated white blood cell count of 30,000. D-dimer was mildly elevated to 0.72. Chemistry profile was unremarkable. Lactic acid peaked at 3.0. Procalcitonin was only mildly elevated at 1.27. Urine analysis was positive for nitrites and leukocyte esterase. MRSA screen was negative. CT head was negative. CTA head neck was also unremarkable. The patient was noted to have a GCS score of 8 in the emergency department. Over concerns for airway protection, the patient was intubated. The patient was placed on antimicrobials and admitted to the medical intensive care unit for further management. Overnight, the patient was febrile with a T-max of 102.4 ?F. He did receive Tylenol and is currently on a cooling blanket. Although the patient did not have a spontaneous breathing trial this morning, following my evaluation of him, he was placed on one. The patient sedation was placed on hold and he was able to complete a spontaneous breathing trial without complication. He was alert and following commands appropriately. The patient was therefore extubated under my direct supervision at approximately 0900 hrs. Past Medical History Past Medical History (Chronic Problems): Chronic Problems (Last Updated 09/12/19 @ 02:52 by Pamela Andres) Multiple sclerosis (Chronic) Medical History: Medical History (Last Updated 09/12/19 @ 02:52 by Pamela Andres) Multiple sclerosis G35 Normal pressure hydrocephalus G91.2 Allergies No Known Allergies Allergy (Verified 09/11/19 14:36) Home Medications: Ambulatory Orders Medication Instructions Recorded Donepezil HCl 5 mg PO QHS 09/11/19 Losartan Potassium 50 mg PO DAILY 09/11/19 Paroxetine [Paxil] 10 mg PO DAILY 09/11/19 Thyroid,Pork [Vandiver Thyroid] 120 mg PO DAILY 09/11/19 Latanoprost 0.005% [Xalatan 1 drp EACH EYE QHS 09/12/19 Opthalmic] Timolol 0.5% [Timoptic] 1 drp EACH EYE QHS 09/12/19 Lives: Spouse/ Significant Other Smoking Status: Unknown if ever smoked Drugs: - - Unable to determine - *Family History Maternal History Items: - - Unable to obtain patient on the vent Review of Systems Unable to obtain accurate/complete ROS d/t: Due to current intubation and mechanical ventilation status. Patient Problems: Active and Suspected Problems (Last Updated 09/12/19 @ 02:52 by Pamela Andres) Respiratory failure requiring intubation (Acute) Sepsis due to urinary tract infection (Acute) Objective: The patient's most recent lab work, culture data and imaging studies have all been personally reviewed. Blood, urine and sputum cultures are pending. - Physical Exam Vitals/I&O's: Vital Signs Temp Pulse Resp BP Pulse Ox 99.0 F 100 22 H 117/83 H 99 09/12/19 05:00 09/12/19 05:00 09/12/19 05:00 09/12/19 05:00 09/12/19 05:00 Oxygen Flow Rate (L/min) 185 Oxygen Delivery Method Mechanical Ventilator Weight: 232 lb 12.93 oz Body Mass Index (BMI) 31.7 Finger Stick Blood Glucose 130 Intake and Output for Last 24 Hours 09/10/19 09/11/19 09/12/19 23:59 23:59 23:59 Intake Total 1730.55 / 1743.25 912.35 / 912.35 Output Total 450 / 450 275 / 275 Balance 1280.55 / 1293.25 637.35 / 637.35 General: Alert, Cooperative, - - Intubated and mechanically ventilated. Currently tolerating spontaneous mode of mechanical ventilation. HEENT: Atraumatic, PERRLA, Normocephalic Oral: No Gingival or Mucosal Lesions/ Ulcerations, - - Endotracheal and OG tubes in place Neck: Supple, No Nodes, Trachea Midline Lungs: Normal air movement, No rhonchi, No wheeze, No rales Cardiovascular: Regular rate, Regular Rhythm, Normal S1, Normal S2 Abdomen: Bowel Sounds Present, Soft, Non Tender Extremities: No clubbing, No cyanosis, No edema Skin: No breakdown Musculoskeletal: No Muscle Wasting Lymphatic: No Cervical, Supraclavicular, or Inguinal Adenopathy Neurological: - - No focal neurological deficits. Able to follow simple commands. Moves extremities spontaneously. Labs (Last 48 Hours) 09/11/19 09/11/19 09/11/19 13:10 13:10 13:10 WBC 29.9 H RBC 5.12 Hgb 16.4 Hct 46.4 MCV 90.6 MCH 32.0 MCHC 35.3 RDW Std Deviation 38.4 RDW Coeff of Keke 11.8 Plt Count 269 MPV 9.8 Immature Gran % (Auto) 1.100 H Neut % (Auto) 86.6 H Lymph % (Auto) 2.9 L Long % (Auto) 9.1 Eos % (Auto) 0.1 Baso % (Auto) 0.2 Absolute Neuts (auto) 25.9 H Absolute Lymphs (auto) 0.86 Nucleated RBC % 0 Differential Comment SCANNED Diff Path Review May foll PT 13.3 INR 1.1 APTT 27.1 D-Dimer Quant (PE/DVT) Sodium 139 Potassium 3.6 Chloride 106 Carbon Dioxide 24.0 Anion Gap 9 BUN 20 H Creatinine 1.25 Estim Creat Clear Calc 58.57 Est GFR (MDRD) Af Amer 73 Est GFR (MDRD) Non-Af 61 BUN/Creatinine Ratio 16.0 Glucose 124 H Lactic Acid Calcium 9.6 Phosphorus Magnesium Total Bilirubin Direct Bilirubin AST ALT Alkaline Phosphatase Total Creatine Kinase Troponin I < 0.015 C-React Prot Ext Range Total Protein Albumin Globulin Procalcitonin Urine Color Urine Clarity Urine pH Ur Specific [place] Urine Protein Urine Glucose (UA) Urine Ketones Urine Occult Blood Urine Nitrite Urine Bilirubin Urine Urobilinogen Ur Leukocyte Esterase Urine RBC Urine WBC Ur Squamous Epith Cells Urine Bacteria Hyaline Casts Fine Granular Casts Urine Mucus MRSA (PCR) POC Glucose 09/11/19 09/11/19 09/11/19 13:10 13:10 13:10 WBC RBC Hgb Hct MCV MCH MCHC RDW Std Deviation RDW Coeff of Keke Plt Count MPV Immature Gran % (Auto) Neut % (Auto) Lymph % (Auto) Long % (Auto) Eos % (Auto) Baso % (Auto) Absolute Neuts (auto) Absolute Lymphs (auto) Nucleated RBC % Differential Comment Diff Path Review PT INR APTT D-Dimer Quant (PE/DVT) 0.72 H* Sodium Potassium Chloride Carbon Dioxide Anion Gap BUN Creatinine Estim Creat Clear Calc Est GFR (MDRD) Af Amer Est GFR (MDRD) Non-Af BUN/Creatinine Ratio Glucose Lactic Acid 2.0 Calcium Phosphorus Magnesium Total Bilirubin 1.30 H Direct Bilirubin 0.29 AST 29 ALT 56 Alkaline Phosphatase 91 Total Creatine Kinase 95 Troponin I C-React Prot Ext Range 19.30 H Total Protein 7.8 Albumin 4.2 Globulin 3.6 Procalcitonin Urine Color Urine Clarity Urine pH Ur Specific [place] Urine Protein Urine Glucose (UA) Urine Ketones Urine Occult Blood Urine Nitrite Urine Bilirubin Urine Urobilinogen Ur Leukocyte Esterase Urine RBC Urine WBC Ur Squamous Epith Cells Urine Bacteria Hyaline Casts Fine Granular Casts Urine Mucus MRSA (PCR) POC Glucose 09/11/19 09/11/19 09/11/19 13:10 14:48 16:40 WBC RBC Hgb Hct MCV MCH MCHC RDW Std Deviation RDW Coeff of Keke Plt Count MPV Immature Gran % (Auto) Neut % (Auto) Lymph % (Auto) Long % (Auto) Eos % (Auto) Baso % (Auto) Absolute Neuts (auto) Absolute Lymphs (auto) Nucleated RBC % Differential Comment Diff Path Review PT INR APTT D-Dimer Quant (PE/DVT) Sodium Potassium Chloride Carbon Dioxide Anion Gap BUN Creatinine Estim Creat Clear Calc Est GFR (MDRD) Af Amer Est GFR (MDRD) Non-Af BUN/Creatinine Ratio Glucose Lactic Acid Calcium Phosphorus Magnesium Total Bilirubin Direct Bilirubin AST ALT Alkaline Phosphatase Total Creatine Kinase Troponin I C-React Prot Ext Range Total Protein Albumin Globulin Procalcitonin 1.27 H Urine Color Yellow Urine Clarity Cloudy Urine pH 5.0 Ur Specific [place] 1.015 Urine Protein 500 H Urine Glucose (UA) Normal Urine Ketones 15 H Urine Occult Blood 150 H Urine Nitrite Positive H Urine Bilirubin Negative Urine Urobilinogen Normal Ur Leukocyte Esterase 500 H Urine RBC 0-5 SEEN Urine WBC 5-10 SEEN Ur Squamous Epith Cells 0-5 SEEN Urine Bacteria 1+ Hyaline Casts 0-5 SEEN Fine Granular Casts 0-5 SEEN Urine Mucus RARE MRSA (PCR) Negative POC Glucose 09/11/19 09/11/19 09/12/19 18:25 18:35 04:00 WBC 17.5 H RBC 4.65 Hgb 15.3 Hct 42.8 MCV 92.0 MCH 32.9 H MCHC 35.7 RDW Std Deviation 40.4 RDW Coeff of Keke 12.1 Plt Count 200 MPV 10.2 Immature Gran % (Auto) 0.600 Neut % (Auto) 86.3 H Lymph % (Auto) 4.6 L Long % (Auto) 7.1 Eos % (Auto) 1.1 Baso % (Auto) 0.3 Absolute Neuts (auto) 15.1 H Absolute Lymphs (auto) 0.80 L Nucleated RBC % 0 Differential Comment Diff Path Review PT INR APTT D-Dimer Quant (PE/DVT) Sodium Potassium Chloride Carbon Dioxide Anion Gap BUN Creatinine Estim Creat Clear Calc Est GFR (MDRD) Af Amer Est GFR (MDRD) Non-Af BUN/Creatinine Ratio Glucose Lactic Acid 3.0 H* Calcium Phosphorus Magnesium Total Bilirubin Direct Bilirubin AST ALT Alkaline Phosphatase Total Creatine Kinase Troponin I C-React Prot Ext Range Total Protein Albumin Globulin Procalcitonin Urine Color Urine Clarity Urine pH Ur Specific [place] Urine Protein Urine Glucose (UA) Urine Ketones Urine Occult Blood Urine Nitrite Urine Bilirubin Urine Urobilinogen Ur Leukocyte Esterase Urine RBC Urine WBC Ur Squamous Epith Cells Urine Bacteria Hyaline Casts Fine Granular Casts Urine Mucus MRSA (PCR) POC Glucose 110 09/12/19 09/12/19 04:00 04:00 WBC RBC Hgb Hct MCV MCH MCHC RDW Std Deviation RDW Coeff of Keke Plt Count MPV Immature Gran % (Auto) Neut % (Auto) Lymph % (Auto) Long % (Auto) Eos % (Auto) Baso % (Auto) Absolute Neuts (auto) Absolute Lymphs (auto) Nucleated RBC % Differential Comment Diff Path Review PT INR APTT D-Dimer Quant (PE/DVT) Sodium 139 Potassium 3.8 Chloride 110 H Carbon Dioxide 22.0 Anion Gap 7 BUN 18 Creatinine 1.02 Estim Creat Clear Calc 69.58 Est GFR (MDRD) Af Amer 93 Est GFR (MDRD) Non-Af 77 BUN/Creatinine Ratio 17.6 Glucose 125 H Lactic Acid Calcium 8.5 Phosphorus 2.5 Magnesium 1.9 Total Bilirubin Direct Bilirubin AST ALT Alkaline Phosphatase Total Creatine Kinase Troponin I C-React Prot Ext Range Total Protein Albumin Globulin Procalcitonin Urine Color Urine Clarity Urine pH Ur Specific [place] Urine Protein Urine Glucose (UA) Urine Ketones Urine Occult Blood Urine Nitrite Urine Bilirubin Urine Urobilinogen Ur Leukocyte Esterase Urine RBC Urine WBC Ur Squamous Epith Cells Urine Bacteria Hyaline Casts Fine Granular Casts Urine Mucus MRSA (PCR) POC Glucose Microbiology 09/11/19 16:45 Mucosa - Nose Respiratory Panel (PCR) - Preliminary Clinical Impression(s) from Imaging Studies Brain CT 09/11/19 13:[address]: 1[address] No [address] evidence of intracranial bleeding, acute ischemic infarct or acute intracranial abnormality at this time. 2. Chronic white matter ischemic changes in both cerebral hemispheres. Electronically Signed: Yoav Schuler MD at 13:51 EDT , Service support , ADDENDUM: 09/11/19 1402 IMPRESSION: 1. No CT evidence of intracranial bleeding, acute ischemic infarct or acute intracranial abnormality at this time. 2. Chronic white matter ischemic changes in both cerebral hemispheres. N.B. : The above information has been verbally conveyed by Yoav Schuler MD to Willie Bartholomew MD, on 09/11/2019 13:55:49 (ET). Electronically Signed: Yoav Schuler MD at 13:51 EDT , Service support , Chest X-Ray 09/11/19 13:03 IMPRESSION: 1. Minimal subsegmental atelectasis in the left infrahilar region in a limited inspiratory chest radiograph. 2. NG tube sidehole is in the proximal duodenum. The NG tube tip is not included in the scan and this at least in the descending duodenum if not in the horizontal portion of the duodenum. 3. Subglottic position of the endotracheal tube tip. Distal repositioning will be helpful. Electronically Signed: Yoav Schuler MD at 14:29 EDT , Service support , Head/Neck CTA 09/11/19 13:37 IMPRESSION: 1. Normal CTA head without suspicious vaso-occlusive disease of the anterior and posterior intracranial circulation. 2. Widely patent right posterior communicating artery with a hypoplastic right P1 segment. 3. Hypoplastic left vertebral artery terminating directly into the left PICA (posterior inferior cerebellar artery). 4. Widely patent bilateral common carotid arteries, bilateral common carotid bifurcations, bilateral internal and external carotid arteries and bilateral vertebral arteries. 5. Less than 20% smooth stenosis of the dominant right vertebral artery at its subclavian origin. 6. Widely patent aortic arch and origins of the great vessels. Electronically Signed: Yoav Schuler MD at 14:14 EDT , Service support , Current Medications Acetaminophen (Tylenol) 650 mg RECTAL Q4H PRN PRN PRN Reason: Pain Score 1-10/Temp > 100.7 F Last Admin: 09/11/19 20:04 Dose: 650 mg Documented by: Chlorhexidine Gluconate () 15 ml PO BID [facility] Last Admin: 09/11/19 20:05 Dose: 15 ml Documented by: Dextrose (D50w Syringe) 0 gm IV X1 PRN; Protocol PRN Reason: Hypoglycemia Enoxaparin Sodium (Lovenox) 40 mg SC DAILY [facility] Glucagon () 1 mg IM .X1 PRN PRN Reason: Hypoglycemia Propofol (Diprivan) 1,000 mg in 100 mls @ 6.336 mls/hr CONT INF .Q12H TEDDY; Prot ocol Last Titration: 09/12/19 05:15 Dose: 25 mcg/kg/min, 15.9 mls/hr Documented by: Ceftriaxone Sodium (Rocephin) 1 gm in 50 mls @ 100 mls/hr IV Q24@2200 [facility] Last Infusion: 09/11/19 22:21 Dose: Infused Documented by: Potassium Chloride/Sodium Chloride () 1,000 mls @ 150 mls/hr IV .[id number] [facility] Stop: 09/13/19 01:43 Last Admin: 09/12/19 04:57 Dose: 150 mls/hr Documented by: Sodium Chloride () 250 mls @ 15 mls/hr IV .[id number] PRN PRN Reason: Saline Flush Sodium Chloride () 250 mls @ 15 mls/hr IV .[id number] PRN PRN Reason: Additional IVPB Infusion Ondansetron HCl (Zofran) 4 mg IV Q8H PRN PRN PRN Reason: NAUSEA/VOMITING Prochlorperazine Edisylate (Compazine Iv) 5 mg IV Q4H PRN PRN PRN Reason: Breakthrough Nausea/Vomiting Sodium Chloride () 10 - 40 ml IV UD PRN PRN Reason: SALINE FLUSH Assessment/Plan Active and Suspected Problems (Last Updated 09/12/19 @ 02:52 by Pamela Andres) Respiratory failure requiring intubation (Acute) Sepsis due to urinary tract infection (Acute) RECOMMENDATIONS: 1. Proceed with a trial of extubation this morning. 2. Once extubated, wean supplemental oxygen to maintain saturations at or above 90%. 3. Bedside swallow evaluation prior to advancing diet. 4. Continue empiric antimicrobials, pending infectious work-up. 5. Continue Lovenox for DVT prophylaxis. Start Pepcid for GI prophylaxis. 6. COVID testing now pending. IMPRESSIONS: 1. Acute hypoxemic respiratory failure The patient was initially intubated in the emergency department over concerns for airway protection in the setting of encephalopathy. His mentation has subsequently improved. His oxygenation status is appropriate. Therefore, I feel that the patient is a good candidate for a trial of extubation this morning. Once extubated, wean supplemental oxygen to maintain saturations at or above 90%. Perform bedside swallow evaluation, prior to advancing diet. Encourage incentive spirometer use and mobilize patient as tolerated. Low clinical index of suspicion for underlying pulmonary infectious etiology. 2. Acute encephalopathy Most likely infectious in nature. Concern for underlying urinary tract source of infection. However, COVID testing was sent. Therefore, the patient will remain in precautions until test results return. CT head along with CTA head and neck was unremarkable. Encephalopathy appears to be improving with current supportive measures. 3. Severe sepsis Most likely related to underlying urinary tract source of infection. The patient will remain on empiric antimicrobials, pending finalized infectious work-up. Although of less suspicion, COVID testing was sent. 4. History of multiple sclerosis/normal pressure hydrocephalus/hypertension/hypothyroidism Complicates care, management, recovery and prognosis. Continue home medications as indicated. Physical therapy evaluation, once medically stabilized. TIME: 38 minutes of critical care time, independent of procedures, was spent addressi ng the patient's acute hypoxemic respiratory failure, acute encephalopathy, severe sepsis, normal pressure hydrocephalus, MS, review of all data and collaboration with the care team. [id number]) [phone]: [id number] Critical care first hour
--- NOTE | 2019-09-12 07:11 | PN_ITS ---
Patient Problems: Active and Suspected Problems (Last Updated 09/12/19 @ 02:52 by Pamela Andres) Respiratory failure requiring intubation (Acute) Sepsis due to urinary tract infection (Acute) Reason for Visit: Severe sepsis secondary to acute cystitis Subjective: Patient is a 69-year-old gentleman admitted with unresponsiveness and respiratory failure in addition to sepsis secondary to UTI. Patient was intubated in the ED since it was felt he was not protecting his airway. Patient was successfully weaned off the vent this a.m. Objective: GENERAL: Awake HEENT: Atraumatic EYES; Anicteric, NECK; supple, normal thyroid, RESPIRATORY: Diminished to auscultation CARDIOVASCULAR: Regular S1 S2, GI: soft, normoactive bowel sounds, : No Renal angle tenderness; EXTREMITIES: No edema, no clubbing, MUSCULOSKELETAL: no muscle waisting NEURO: No lateralizing signs SKIN: No Rash Vitals/I&O's: Vital Signs Temp Pulse Resp BP Pulse Ox 99.0 F 81 14 115/71 97 09/12/19 06:00 09/12/19 06:00 09/12/19 06:00 09/12/19 06:00 09/12/19 06:00 Oxygen Flow Rate (L/min) 185 Oxygen Delivery Method Mechanical Ventilator Weight: 105.6 kg Body Mass Index (BMI) 31.7 Finger Stick Blood Glucose 130 Intake and Output for Last 24 Hours 09/10/19 09/11/19 09/12/19 23:59 23:59 23:59 Intake Total 1730.55 / 1743.25 1081.78 / 1081.78 Output Total 450 / 450 275 / 275 Balance 1280.55 / 1293.25 806.78 / 806.78 Microbiology Past 72 Hours 09/11/19 16:45 Mucosa - Nose Respiratory Panel (PCR) - Preliminary Laboratory Results 09/11/19 13:10: WBC 29.9 H, RBC 5.12, Hgb 16.4, Hct 46.4, MCV 90.6, MCH 32.0, MCHC 35.3, RDW Std Deviation 38.4, RDW Coeff of Keke 11.8, Plt Count 269, MPV 9.8, Immature Gran % (Auto) 1.100 H, Neut % (Auto) 86.6 H, Lymph % (Auto) 2.9 L, [place] % (Auto) 9.1, Eos % (Auto) 0.1, Baso % (Auto) 0.2, Absolute Neuts (auto) 25.9 H, Absolute Lymphs (auto) 0.86, Nucleated RBC % 0, Differential Comment SCANNED, Diff Path Review September foll 09/11/19 13:10: PT 13.3, INR 1.1, APTT 27.1 09/11/19 13:10: Sodium 139, Potassium 3.6, Chloride 106, Carbon Dioxide 24.0, Anion Gap 9, BUN 20 H, Creatinine 1.25, Estim Creat Clear Calc 58.57, Est GFR (MDRD) Af Amer 73, Est GFR (MDRD) Non-Af 61, BUN/Creatinine Ratio 16.0, Glucose 124 H, Calcium 9.6, Troponin I < 0.015 09/11/19 13:10: Lactic Acid 2.0 09/11/19 13:10: D-Dimer Quant (PE/DVT) 0.72 H* 09/11/19 13:10: Total Bilirubin 1.30 H, Direct Bilirubin 0.29, AST 29, ALT 56, Alkaline Phosphatase 91, Total Creatine Kinase 95, C-React Prot Ext Range 19.30 H, Total Protein 7.8, Albumin 4.2, Globulin 3.6 09/11/19 13:10: Procalcitonin 1.27 H 09/11/19 14:48: Urine Color Yellow, Urine Clarity Cloudy, Urine pH 5.0, Ur Specific [place] 1.015, Urine Protein 500 H, Urine Glucose (UA) Normal, Urine Ketones 15 H, Urine Occult Blood 150 H, Urine Nitrite Positive H, Urine Bilirubin Negative, Urine Urobilinogen Normal, Ur Leukocyte Esterase 500 H, Urine RBC 0-5 SEEN, Urine WBC 5-10 SEEN, Ur Squamous Epith Cells 0-5 SEEN, Urine Bacteria 1+, Hyaline Casts 0-5 SEEN, Fine Granular Casts 0-5 SEEN, Urine Mucus RARE 09/11/19 16:40: MRSA (PCR) Negative 09/11/19 18:25: POC Glucose 110 09/11/19 18:35: Lactic Acid 3.0 H* 09/12/19 04:00: WBC 17.5 H, RBC 4.65, Hgb 15.3, Hct 42.8, MCV 92.0, MCH 32.9 H, MCHC 35.7, RDW Std Deviation 40.4, RDW Coeff of Keke 12.1, Plt Count 200, MPV 10.2, Immature Gran % (Auto) 0.600, Neut % (Auto) 86.3 H, Lymph % (Auto) 4.6 L, [place] % (Auto) 7.1, Eos % (Auto) 1.1, Baso % (Auto) 0.3, Absolute Neuts (auto) 15.1 H, Absolute Lymphs (auto) 0.80 L, Nucleated RBC % 0 09/12/19 04:00: Sodium 139, Potassium 3.8, Chloride 110 H, Carbon Dioxide 22.0, Anion Gap 7, BUN 18, Creatinine 1.02, Estim Creat Clear Calc 69.58, Est GFR (MDRD) Af Amer 93, Est GFR (MDRD) Non-Af 77, BUN/Creatinine Ratio 17.6, Glucose 125 H, Calcium 8.5, Magnesium 1.9 09/12/19 04:00: Phosphorus 2.5 Current Medications Acetaminophen (Tylenol) 650 mg RECTAL Q4H PRN PRN PRN Reason: Pain Score 1-10/Temp > 100.7 F Last Admin: 09/11/19 20:04 Dose: 650 mg Documented by: Chlorhexidine Gluconate () 15 ml PO BID [facility] Last Admin: 09/11/19 20:05 Dose: 15 ml Documented by: Dextrose (D50w Syringe) 0 gm IV X1 PRN; Protocol PRN Reason: Hypoglycemia Enoxaparin Sodium (Lovenox) 40 mg SC DAILY [facility] Glucagon () 1 mg IM .X1 PRN PRN Reason: Hypoglycemia Propofol (Diprivan) 1,000 mg in 100 mls @ 6.336 mls/hr CONT INF .Q12H [facility]; Protocol Last Titration: 09/12/19 06:00 Dose: 25 mcg/kg/min, 15.8 mls/hr Documented by: Ceftriaxone Sodium (Rocephin) 1 gm in 50 mls @ 100 mls/hr IV Q24@2200 [facility] Last Infusion: 09/11/19 22:21 Dose: Infused Documented by: Potassium Chloride/Sodium Chloride () 1,000 mls @ 150 mls/hr IV .Q6H40M [facility] Stop: 09/13/19 01:43 Last Infusion: 09/12/19 06:00 Dose: 150 mls/hr Documented by: Sodium Chloride () 250 mls @ 15 mls/hr IV .[id number] PRN PRN Reason: Saline Flush Sodium Chloride () 250 mls @ 15 mls/hr IV .[id number] PRN PRN Reason: Additional IVPB Infusion Ondansetron HCl (Zofran) 4 mg IV Q8H PRN PRN PRN Reason: NAUSEA/VOMITING Prochlorperazine Edisylate (Compazine Iv) 5 mg IV Q4H PRN PRN PRN Reason: Breakthrough Nausea/Vomiting Sodium Chloride () 10 - 40 ml IV UD PRN PRN Reason: SALINE FLUSH STROKE Vital Signs/Narrative: Vital Signs Temp Pulse Resp BP Pulse Ox 09/12/19 06:00 99.0 F 81 14 115/71 97 09/12/19 05:00 99.0 F 100 22 H 117/83 H 99 09/12/19 04:55 103 H 26 H 99 09/12/19 04:00 99.7 F H 85 13 108/82 H 97 09/12/19 03:42 91 Medical Necessity - Tobacco Use Smoking Status: Unknown if ever smoked Assessment/Plan All Active Problems (Last Updated 09/12/19 @ 02:52 by Pamela Andres) Normal pressure hydrocephalus (Acute) Respiratory failure requiring intubation (Acute) Sepsis due to urinary tract infection (Acute) Patient is a 69-year-old gentleman admitted with unresponsiveness and respiratory failure in addition to sepsis secondary to UTI 1. Acute encephalopathy Suspected to be secondary to sepsis as a result of UTI acute CVA was ruled out with a negative head CT 2. Acute hypoxic respiratory failure ?Secondary to patient being encephalopathic. Patient was intubated in the ED. x-ray obtained demonstrated Minimal subsegmental atelectasis in the left infrahilar region in a limited inspiratory chest radiograph patient currently being managed with ICU vent management order set with consultation placed to Dr. Farris with intensive care ?Consult was placed to pulmonology patient weaned off the vent on the morning of 09/12/2019 3. Severe sepsis secondary to UTI ?Patient presented with acute encephalopathy. Had only mild pyuria with posi tive nitrites as well as leukocyte esterase. Rocephin initiated per protocol urine and blood culture sent ?09/12/2019 T-max 102.4. Cultures pending patient remains on broad-spectrum antibiotic therapy 4. Multiple sclerosis ?Currently stable 5. Depression patient is on SSRI ?Resumed 6. Hypertension ~ blood pressure controlled, home medications continued with dose adjustment as needed 7. Hypothyroidism ~patient is on [place] Thyroid, home dose resumed 8. DVT prophylaxis ~ on enoxaparin Inpatient E&M: [id number] [facility] [address]
--- NOTE | 2019-09-12 07:19 | RAD_ITS ---
STUDY: X-RAY CHEST REASON FOR EXAM: Male, 69 years old. Respiratory failure. Found unresponsive yesterday. TECHNIQUE: AP supine portable view. COMPARISON: 09/11/2019. FINDINGS: NG tube tip is in the gastric antrum. ET tube tip is now at the thoracic inlet. This was previously above the thoracic inlet. Pulmonary hypoinflation. No confluent infiltrates. Clearing of subsegmental atelectasis at right lung base and clearing of discoid atelectases in the left lower lobe. There is no demonstrated pleural abnormality. Mild cardiomegaly is unchanged. Normal mediastinum and spenser. Normal visualized pulmonary arteries. Normal visualized aortic arch and descending thoracic aorta. Normal visualized thoracic spine. Normal visualized ribs, clavicles, and shoulders. There is no demonstrated abnormality of the visualized soft tissue structures of the upper abdomen. RAD/Chest 1 View (Portable) IMPRESSION: 1. No acute cardiopulmonary pathology given the markedly limited inspiratory effort. 2. Clearing of subsegmental atelectases in the right lung base and discoid atelectasis in left lower lobe. 3. ET tube tip is now at the thoracic inlet, previously above the thoracic inlet. 4. NG tube tip is in the gastric antrum. Electronically Signed: Yoav Schuler MD at 10:01 EDT , Service support ,
[2019-09-12 08:10] LABS: Thyroid Stim Hormone (TSH) 1.07 uIU/mL (0.358-3.74)
--- NOTE | 2019-09-12 08:25 | NURSING ---
Propofol paused for breathing trial
[2019-09-12] MEDS: Chlorhexidine 15 ML PO (08:30)
[2019-09-12] MEDS: Famotidine 20 MG Tablet GT (10:33)
[2019-09-12] MEDS: Enoxaparin 40 MG/0.4 ML Syringe SC (14:29)
[2019-09-12] MEDS: Acetaminophen 325 MG Tablet 650 MG PO (16:22)
--- NOTE | 2019-09-12 19:17 | NURSING ---
Note from 09/11/2019. Dr. Linares called for updates. Reports pt has recently been diagnosed with normal pressure hydrocephalus and has an appointment to see Dr. Cloud in the next couple of weeks to have fluid removed.
[2019-09-12] MEDS: Famotidine 20 MG Tablet PO (21:27)
[2019-09-12] MEDS: Ceftriaxone 1 GM/50 ML BAG IV (21:28)
[2019-09-13] VITALS (30 sets, daily range): BP systolic 90–153; BP diastolic 63–114; PULSE 78–112; RESP 22–30; TEMP 36.6–38.1; O2SAT 94–99
[2019-09-13 04:41] LABS: Absolute Lymphocyte Count 1.29 X10^3/uL (0.83-4.51); Basophil# 0.05 X10^3/uL; Basophil% 0.4 % (0-1); Eosinophil# 0.19 X10^3/uL; Eosinophils% 1.4 % (0-5); Hematocrit 39.7 % (40-54); Hemoglobin 13.4 g/dL (13.0-16.5); Lymphocyte # 1.29 X10^3/ul (4.0); Lymphocyte % 9.4 % (19-41); Mean Corp Hgb Conc 33.8 g/dL (32-36); Mean Corpuscular Hgb 31.2 pg (27.0-32.0); Mean Corpuscular Volume 92.5 fL (80-94); Mean Platelet Vol. 10.1 fl (6.2-12.0); Monocyte# 1.09 X10^3/uL; NRBC Flagged by Analyzer 0 % (0-5); Neutrophil # 10.95 X10^3/uL (2.7-7.7); Neutrophil % 80.1 % (47-70); POSITIVE COUNT YES; Platelet Count 159 K/mm3 (150-450); RBC Distribution Width CV 12.2 % (11.6-14.6); Red Blood Count 4.29 M/mm3 (4.6-6.2); White Blood Count 13.7 K/mm3 (4.4-11.0)
[2019-09-13 04:42] LABS: Differential Indicated SCAN CRITERIA MET
[2019-09-13 05:07] LABS: Anion Gap 5 (5-15); BUN 15 mg/dL (7-18); BUN/Creat Ratio 15.5 RATIO (10-20); Calcium,Total 8.1 mg/dL (8.5-10.1); Chloride 112 mmol/L (98-107); Creatinine, Serum 0.96 mg/dL (0.70-1.30); EST Glomerular Filtration Rate 82 mL/min (>60); Est Glom Filt Rate - Afr Amer 99 mL/min (>60); Estimated Creatinine Clearance 73.93 ml/min; Glucose 93 mg/dL (74-106); Potassium 3.9 mmol/L (3.5-5.1); Sodium Level 140 mmol/L (136-145)
--- NOTE | 2019-09-13 06:54 | PN_ITS ---
Subjective: Patient did well overnight. Patient currently on room air and is doing well. Patient reports some mild abdominal discomfort, but denies any pain. Patient did have a fever overnight, but has remained hemodynamically stable. Patient's COVID testing is still pending. Patient does report that he tends to have some urinary retention at baseline. Nursing reported patient had some bigeminy overnight General: Alert, Oriented x3, Cooperative, No apparent distress, Well developed, Well nourished, - - Obese. Speaking in full sentences. HEENT: Atraumatic, PERRLA, EOMI, Normocephalic, - - No scleral icterus or injection noted Oral: Moist Mucosa, No Gingival or Mucosal Lesions/ Ulcerations Neck: Supple, No JVD, No Nodes, Trachea Midline Lungs: Clear to auscultation, Normal air movement, No rhonchi, No wheeze, No rales Cardiovascular: Regular rate, Regular Rhythm, Normal S1, Normal S2, No murmurs, No rub noted, No Gallop Abdomen: Bowel Sounds Present, Soft, Non Tender, Non-Distended, Obese Extremities: No clubbing, No cyanosis, Edema - Trace Skin: No rashes, No breakdown Musculoskeletal: No Tenderness to Palpation of Joints or Extremities Lymphatic: No Cervical, Supraclavicular, or Inguinal Adenopathy Neurological: Cranial nerves II-XII grossly intact, Neuro grossly intact, Motor Exam 5/5 strength throughout Psych/Mental Status: Alert and oriented to time, place, person, mood and affect Vital Signs Temp Pulse Resp BP Pulse Ox 37.7 C H 92 25 H 135/98 H 99 09/13/19 06:00 09/13/19 06:00 09/13/19 06:00 09/13/19 06:00 09/13/19 06:00 Oxygen Flow Rate (L/min) 185 Oxygen Delivery Method Room Air Weight: 107.6 kg Body Mass Index (BMI) 31.7 Finger Stick Blood Glucose 130 Intake and Output for Last 24 Hours 09/11/19 09/12/19 09/13/19 23:59 23:59 23:59 Intake Total 1730.55 / 1743.25 3974.96 / 3974.96 614 / 614 Output Total 450 / 450 1300 / 1300 350 / 350 Balance 1280.55 / 1293.25 2674.96 / 2674.96 264 / 264 Labs (Last 48 Hours) 09/11/19 09/11/19 09/11/19 13:10 13:10 13:10 WBC 29.9 H RBC 5.12 Hgb 16.4 Hct 46.4 MCV 90.6 MCH 32.0 MCHC 35.3 RDW Std Deviation 38.4 RDW Coeff of Keke 11.8 Plt Count 269 MPV 9.8 Immature Gran % (Auto) 1.100 H Neut % (Auto) 86.6 H Lymph % (Auto) 2.9 L [place] % (Auto) 9.1 Eos % (Auto) 0.1 Baso % (Auto) 0.2 Absolute Neuts (auto) 25.9 H Absolute Lymphs (auto) 0.86 Nucleated RBC % 0 Differential Comment SCANNED Diff Path Review May foll PT 13.3 INR 1.1 APTT 27.1 D-Dimer Quant (PE/DVT) Sodium 139 Potassium 3.6 Chloride 106 Carbon Dioxide 24.0 Anion Gap 9 BUN 20 H Creatinine 1.25 Estim Creat Clear Calc 58.57 Est GFR (MDRD) Af Amer 73 Est GFR (MDRD) Non-Af 61 BUN/Creatinine Ratio 16.0 Glucose 124 H Lactic Acid Calcium 9.6 Phosphorus Magnesium Total Bilirubin Direct Bilirubin AST ALT Alkaline Phosphatase Total Creatine Kinase Troponin I < 0.015 C-React Prot Ext Range Total Protein Albumin Globulin Procalcitonin TSH Urine Color Urine Clarity Urine pH Ur Specific [place] Urine Protein Urine Glucose (UA) Urine Ketones Urine Occult Blood Urine Nitrite Urine Bilirubin Urine Urobilinogen Ur Leukocyte Esterase Urine RBC Urine WBC Ur Squamous Epith Cells Urine Bacteria Hyaline Casts Fine Granular Casts Urine Mucus COVID-19 (ZAKIYA) MRSA (PCR) POC Glucose 09/11/19 09/11/19 09/11/19 13:10 13:10 13:10 WBC RBC Hgb Hct MCV MCH MCHC RDW Std Deviation RDW Coeff of Keke Plt Count MPV Immature Gran % (Auto) Neut % (Auto) Lymph % (Auto) [place] % (Auto) Eos % (Auto) Baso % (Auto) Absolute Neuts (auto) Absolute Lymphs (auto) Nucleated RBC % Differential Comment Diff Path Review PT INR APTT D-Dimer Quant (PE/DVT) 0.72 H* Sodium Potassium Chloride Carbon Dioxide Anion Gap BUN Creatinine Estim Creat Clear Calc Est GFR (MDRD) Af Amer Est GFR (MDRD) Non-Af BUN/Creatinine Ratio Glucose Lactic Acid 2.0 Calcium Phosphorus Magnesium Total Bilirubin 1.30 H Direct Bilirubin 0.29 AST 29 ALT 56 Alkaline Phosphatase 91 Total Creatine Kinase 95 Troponin I C-React Prot Ext Range 19.30 H Total Protein 7.8 Albumin 4.2 Globulin 3.6 Procalcitonin TSH Urine Color Urine Clarity Urine pH Ur Specific [place] Urine Protein Urine Glucose (UA) Urine Ketones Urine Occult Blood Urine Nitrite Urine Bilirubin Urine Urobilinogen Ur Leukocyte Esterase Urine RBC Urine WBC Ur Squamous Epith Cells Urine Bacteria Hyaline Casts Fine Granular Casts Urine Mucus COVID-19 (ZAKIYA) MRSA (PCR) POC Glucose 09/11/19 09/11/19 09/11/19 13:10 14:48 16:40 WBC RBC Hgb Hct MCV MCH MCHC RDW Std Deviation RDW Coeff of Keke Plt Count MPV Immature Gran % (Auto) Neut % (Auto) Lymph % (Auto) [place] % (Auto) Eos % (Auto) Baso % (Auto) Absolute Neuts (auto) Absolute Lymphs (auto) Nucleated RBC % Differential Comment Diff Path Review PT INR APTT D-Dimer Quant (PE/DVT) Sodium Potassium Chloride Carbon Dioxide Anion Gap BUN Creatinine Estim Creat Clear Calc Est GFR (MDRD) Af Amer Est GFR (MDRD) Non-Af BUN/Creatinine Ratio Glucose Lactic Acid Calcium Phosphorus Magnesium Total Bilirubin Direct Bilirubin AST ALT Alkaline Phosphatase Total Creatine Kinase Troponin I C-React Prot Ext Range Total Protein Albumin Globulin Procalcitonin 1.27 H TSH Urine Color Yellow Urine Clarity Cloudy Urine pH 5.0 Ur Specific [place] 1.015 Urine Protein 500 H Urine Glucose (UA) Normal Urine Ketones 15 H Urine Occult Blood 150 H Urine Nitrite Positive H Urine Bilirubin Negative Urine Urobilinogen Normal Ur Leukocyte Esterase 500 H Urine RBC 0-5 SEEN Urine WBC 5-10 SEEN Ur Squamous Epith Cells 0-5 SEEN Urine Bacteria 1+ Hyaline Casts 0-5 SEEN Fine Granular Casts 0-5 SEEN Urine Mucus RARE COVID-19 (ZAKIYA) MRSA (PCR) Negative POC Glucose 09/11/19 09/11/19 09/12/19 18:25 18:35 04:00 WBC 17.5 H RBC 4.65 Hgb 15.3 Hct 42.8 MCV 92.0 MCH 32.9 H MCHC 35.7 RDW Std Deviation 40.4 RDW Coeff of Keke 12.1 Plt Count 200 MPV 10.2 Immature Gran % (Auto) 0.600 Neut % (Auto) 86.3 H Lymph % (Auto) 4.6 L [place] % (Auto) 7.1 Eos % (Auto) 1.1 Baso % (Auto) 0.3 Absolute Neuts (auto) 15.1 H Absolute Lymphs (auto) 0.80 L Nucleated RBC % 0 Differential Comment Diff Path Review PT INR APTT D-Dimer Quant (PE/DVT) Sodium Potassium Chloride Carbon Dioxide Anion Gap BUN Creatinine Estim Creat Clear Calc Est GFR (MDRD) Af Amer Est GFR (MDRD) Non-Af BUN/Creatinine Ratio Glucose Lactic Acid 3.0 H* Calcium Phosphorus Magnesium Total Bilirubin Direct Bilirubin AST ALT Alkaline Phosphatase Total Creatine Kinase Troponin I C-React Prot Ext Range Total Protein Albumin Globulin Procalcitonin TSH Urine Color Urine Clarity Urine pH Ur Specific [place] Urine Protein Urine Glucose (UA) Urine Ketones Urine Occult Blood Urine Nitrite Urine Bilirubin Urine Urobilinogen Ur Leukocyte Esterase Urine RBC Urine WBC Ur Squamous Epith Cells Urine Bacteria Hyaline Casts Fine Granular Casts Urine Mucus COVID-19 (ZAKIYA) MRSA (PCR) POC Glucose 110 09/12/19 09/12/19 09/12/19 04:00 04:00 04:00 WBC RBC Hgb Hct MCV MCH MCHC RDW Std Deviation RDW Coeff of Keke Plt Count MPV Immature Gran % (Auto) Neut % (Auto) Lymph % (Auto) [place] % (Auto) Eos % (Auto) Baso % (Auto) Absolute Neuts (auto) Absolute Lymphs (auto) Nucleated RBC % Differential Comment Diff Path Review PT INR APTT D-Dimer Quant (PE/DVT) Sodium 139 Potassium 3.8 Chloride 110 H Carbon Dioxide 22.0 Anion Gap 7 BUN 18 Creatinine 1.02 Estim Creat Clear Calc 69.58 Est GFR (MDRD) Af Amer 93 Est GFR (MDRD) Non-Af 77 BUN/Creatinine Ratio 17.6 Glucose 125 H Lactic Acid Calcium 8.5 Phosphorus 2.5 Magnesium 1.9 Total Bilirubin Direct Bilirubin AST ALT Alkaline Phosphatase Total Creatine Kinase Troponin I C-React Prot Ext Range Total Protein Albumin Globulin Procalcitonin TSH 1.07 Urine Color Urine Clarity Urine pH Ur Specific [place] Urine Protein Urine Glucose (UA) Urine Ketones Urine Occult Blood Urine Nitrite Urine Bilirubin Urine Urobilinogen Ur Leukocyte Esterase Urine RBC Urine WBC Ur Squamous Epith Cells Urine Bacteria Hyaline Casts Fine Granular Casts Urine Mucus COVID-19 (ZAKIYA) MRSA (PCR) POC Glucose 09/12/19 09/13/19 09/13/19 07:52 04:20 04:20 WBC 13.7 H RBC 4.29 L Hgb 13.4 Hct 39.7 L MCV 92.5 MCH 31.2 MCHC 33.8 D RDW Std Deviation 41.0 RDW Coeff of Ekke 12.2 Plt Count 159 MPV 10.1 Immature Gran % (Auto) 0.700 Neut % (Auto) 80.1 H Lymph % (Auto) 9.4 L [place] % (Auto) 8.0 Eos % (Auto) 1.4 Baso % (Auto) 0.4 Absolute Neuts (auto) 11.0 H Absolute Lymphs (auto) 1.29 Nucleated RBC % 0 Differential Comment COMMENT Diff Path Review PT INR APTT D-Dimer Quant (PE/DVT) Sodium 140 Potassium 3.9 Chloride 112 H Carbon Dioxide 23.0 Anion Gap 5 BUN 15 Creatinine 0.96 Estim Creat Clear Calc 73.93 Est GFR (MDRD) Af Amer 99 Est GFR (MDRD) Non-Af 82 BUN/Creatinine Ratio 15.5 Glucose 93 Lactic Acid Calcium 8.1 L Phosphorus Magnesium Total Bilirubin Direct Bilirubin AST ALT Alkaline Phosphatase Total Creatine Kinase Troponin I C-React Prot Ext Range Total Protein Albumin Globulin Procalcitonin TSH Urine Color Urine Clarity Urine pH Ur Specific [place] Urine Protein Urine Glucose (UA) Urine Ketones Urine Occult Blood Urine Nitrite Urine Bilirubin Urine Urobilinogen Ur Leukocyte Esterase Urine RBC Urine WBC Ur Squamous Epith Cells Urine Bacteria Hyaline Casts Fine Granular Casts Urine Mucus COVID-19 (ZAKIYA) Pending MRSA (PCR) POC Glucose Microbiology 09/11/19 14:48 Urine Catheter - Catheter Urine Culture - Preliminary Presumptive E. coli 09/11/19 20:20 Transtracheal Aspirate Gram Stain - Final 09/11/19 16:45 Mucosa - Nose Respiratory Panel (PCR) - Final Clinical Impression(s) from Imaging Studies Chest X-Ray 09/12/19 07:19 IMPRESSION: 1. No acute cardiopulmonary pathology given the markedly limited inspiratory effort. 2. Clearing of subsegmental atelectases in the right lung base and discoid atelectasis in left lower lobe. 3. ET tube tip is now at the thoracic inlet, previously above the thoracic inlet. 4. NG tube tip is in the gastric antrum. Electronically Signed: Yoav Schuler MD at 10:01 EDT , Service support , Medical Necessity - Tobacco Use Smoking Status: Unknown if ever smoked Assessment/Plan All Active Problems (Last Updated 09/12/19 @ 02:52 by Pamela Andres) Normal pressure hydrocephalus (Acute) Respiratory failure requiring intubation (Acute) Sepsis due to urinary tract infection (Acute) RECOMMENDATIONS: 1. Await COVID testing 2. Okay to initiate p.o. diet 3. Continue empiric antibiotics pending E. coli sensitivities 4. Possibly transition to p.o. antibiotics tomorrow 5. Okay to leave the intensive care unit once COVID testing is resulted IMPRESSIONS: 1. Acute hypoxemic respiratory failure The patient was initially intubated in the emergency department over concerns for airway protection in the setting of encephalopathy. His mentation has subsequently analyzed along with his oxygenation status. Encourage incentive spirometer use and mobilize patient as tolerated. Low clinical index of suspicion for underlying pulmonary infectious etiology. 2. Acute metabolic encephalopathy/delirium Most likely infectious in nature. Patient is growing E. coli from the urinary tract. CT imaging of the head of spine unremarkable. Patient's electrolytes have normalized. Continue delirium protocol. 3. Severe sepsis Most likely secondary to an E. coli UTI. The patient will remain on empiric antimicrobials, pending finalized infectious work-up. Although of less suspicion, COVID testing was sent, so recommend awaiting results prior to transfer from the intensive care unit. Doubt patient will need to be on the [facility] ort unit. 4. History of multiple sclerosis/normal pressure hydrocephalus/hypertension/hypothyroidism Complicates care, management, recovery and prognosis. Continue home medications as indicated. Physical therapy evaluation, once medically stabilized. Inpatient E&M: [id number] [facility] L3
--- NOTE | 2019-09-13 07:18 | PCM.PN.HOSP ---
Patient Problems: Active and Suspected Problems (Last Updated 09/12/19 @ 02:52 by Pamela Andres) Respiratory failure requiring intubation (Acute) Sepsis due to urinary tract infection (Acute) Vitals/I&O's: Vital Signs Temp Pulse Resp BP Pulse Ox 99.8 F H 97 23 H 145/88 H 97 09/13/19 07:00 09/13/19 07:00 09/13/19 07:00 09/13/19 07:00 09/13/19 07:00 Oxygen Flow Rate (L/min) 185 Oxygen Delivery Method Room Air Weight: 107.6 kg Body Mass Index (BMI) 31.7 Finger Stick Blood Glucose 130 Intake and Output for Last 24 Hours 09/11/19 09/12/19 09/13/19 23:59 23:59 23:59 Intake Total 1730.55 / 1743.25 3974.96 / 3974.96 614 / 614 Output Total 450 / 450 1300 / 1300 350 / 350 Balance 1280.55 / 1293.25 2674.96 / 2674.96 264 / 264 Microbiology Past 72 Hours 09/11/19 14:48 Urine Catheter - Catheter Urine Culture - Preliminary Presumptive E. coli 09/11/19 20:20 Transtracheal Aspirate Gram Stain - Final 09/11/19 16:45 Mucosa - Nose Respiratory Panel (PCR) - Final Laboratory Results 09/12/19 04:00: TSH 1.07 09/12/19 07:52: COVID-19 (ZAKIYA) Pending 09/13/19 04:20: WBC 13.7 H, RBC 4.29 L, Hgb 13.4, Hct 39.7 L, MCV 92.5, MCH 31.2, MCHC 33.8 D, RDW Std Deviation 41.0, RDW Coeff of Keke 12.2, Plt Count 159, MPV 10.1, Immature Gran % (Auto) 0.700, Neut % (Auto) 80.1 H, Lymph % (Auto) 9.4 L, [place] % (Auto) 8.0, Eos % (Auto) 1.4, Baso % (Auto) 0.4, Absolute Neuts (auto) 11.0 H, Absolute Lymphs (auto) 1.29, Nucleated RBC % 0, Differential Comment COMMENT 09/13/19 04:20: Sodium 140, Potassium 3.9, Chloride 112 H, Carbon Dioxide 23.0, Anion Gap 5, BUN 15, Creatinine 0.96, Estim Creat Clear Calc 73.93, Est GFR (MDRD) Af Amer 99, Est GFR (MDRD) Non-Af 82, BUN/Creatinine Ratio 15.5, Glucose 93, Calcium 8.1 L Current Medications Acetaminophen (Tylenol) 650 mg RECTAL Q4H PRN PRN PRN Reason: Pain Score 1-10/Temp > 100.7 F Last Admin: 09/11/19 20:04 Dose: 650 mg Documented by: Acetaminophen (Tylenol) 650 mg PO Q4H PRN PRN PRN Reason: Pain or Fever Last Admin: 09/12/19 16:22 Dose: 650 mg Documented by: Dextrose (D50w Syringe) 0 gm IV X1 PRN; Protocol PRN Reason: Hypoglycemia Enoxaparin Sodium (Lovenox) 40 mg SC DAILY [facility] Last Admin: 09/12/19 14:29 Dose: 40 mg Documented by: Famotidine (Pepcid) 20 mg PO BID [facility] Last Admin: 09/12/19 21:27 Dose: 20 mg Documented by: Glucagon () 1 mg IM .X1 PRN PRN Reason: Hypoglycemia Ceftriaxone Sodium (Rocephin) 1 gm in 50 mls @ 100 mls/hr IV Q24@2200 [facility] Last Infusion: 09/12/19 21:58 Dose: Infused Documented by: Sodium Chloride () 250 mls @ 15 mls/hr IV .[id number] PRN PRN Reason: Saline Flush Sodium Chloride () 250 mls @ 15 mls/hr IV .[id number] PRN PRN Reason: Additional IVPB Infusion Ondansetron HCl (Zofran) 4 mg IV Q8H PRN PRN PRN Reason: NAUSEA/VOMITING Prochlorperazine Edisylate (Compazine Iv) 5 mg IV Q4H PRN PRN PRN Reason: Breakthrough Nausea/Vomiting Sodium Chloride () 10 - 40 ml IV UD PRN PRN Reason: SALINE FLUSH STROKE Vital Signs/Narrative: Vital Signs Temp Pulse Resp BP Pulse Ox 09/13/19 07:00 99.8 F H 97 23 H 145/88 H 97 09/13/19 06:00 99.9 F H 92 25 H 135/98 H 99 09/13/19 05:00 100.1 F H 92 24 H 140/88 H 96 09/13/19 04:00 100.2 F H 89 23 H 149/96 H 98 Medical Necessity - Tobacco Use Smoking Status: Unknown if ever smoked Assessment/Plan All Active Problems (Last Updated 09/12/19 @ 02:52 by Pamela Andres) Normal pressure hydrocephalus (Acute) Respiratory failure requiring intubation (Acute) Sepsis due to urinary tract infection (Acute)
[2019-09-13] MEDS: Enoxaparin 40 MG/0.4 ML Syringe SC (08:30)
[2019-09-13] MEDS: Famotidine 20 MG Tablet PO ×2 (08:30→22:45)
[2019-09-13 10:57] LABS: Pathologist Review Reviewed
--- NOTE | 2019-09-13 11:07 | PN_ITS ---
Patient Problems: Active and Suspected Problems (Last Updated 09/12/19 @ 02:52 by Pamela Andres) Respiratory failure requiring intubation (Acute) Sepsis due to urinary tract infection (Acute) Reason for Visit: Encephalopathy Subjective: Feeling well. Breathing well. Vitals/I&O's: Vital Signs Temp Pulse Resp BP Pulse Ox 36.7 C 78 27 H 90/65 99 09/13/19 10:00 09/13/19 10:00 09/13/19 10:00 09/13/19 10:00 09/13/19 10:00 Oxygen Flow Rate (L/min) 185 Oxygen Delivery Method Room Air Weight: 107.6 kg Body Mass Index (BMI) 31.7 Finger Stick Blood Glucose 130 Intake and Output for Last 24 Hours 09/11/19 09/12/19 09/13/19 23:59 23:59 23:59 Intake Total 1730.55 / 1743.25 3974.96 / 3974.96 614 / 614 Output Total 450 / 450 1300 / 1300 350 / 350 Balance 1280.55 / 1293.25 2674.96 / 2674.96 264 / 264 General: Alert, Cooperative, No apparent distress HEENT: Atraumatic, Normocephalic Oral: Moist Mucosa, No Gingival or Mucosal Lesions/ Ulcerations Neck: No Nodes, Trachea Midline Lungs: Clear to auscultation, Normal air movement, No rhonchi, No wheeze, No rales Cardiovascular: Regular rate, Regular Rhythm, Normal S1, Normal S2, No murmurs Abdomen: Bowel Sounds Present, Soft, Non Tender, Non-Distended, No Hepato- splenomegaly Extremities: No edema, No Calf Tenderness Psych/Mental Status: Normal Affect, Appropriate Microbiology Past 72 Hours 09/11/19 13:52 Blood Culture (Wb) #2 - Anticubital Right Blood Culture - Preliminary No growth in 48 hours. 09/11/19 13:10 Blood Culture (Wb) - Anticubital Left Blood Culture - Preliminary No growth in 48 hours. 09/11/19 14:48 Urine Catheter - Catheter Urine Culture - Final Presumptive E. coli 09/11/19 20:20 Transtracheal Aspirate Gram Stain - Final 09/11/19 16:45 Mucosa - Nose Respiratory Panel (PCR) - Final Laboratory Results 09/11/19 13:10: Diff Path Review Reviewed 09/13/19 04:20: WBC 13.7 H, RBC 4.29 L, Hgb 13.4, Hct 39.7 L, MCV 92.5, MCH 31.2, MCHC 33.8 D, RDW Std Deviation 41.0, RDW Coeff of Keke 12.2, Plt Count 159, MPV 10.1, Immature Gran % (Auto) 0.700, Neut % (Auto) 80.1 H, Lymph % (Auto) 9.4 L, [place] % (Auto) 8.0, Eos % (Auto) 1.4, Baso % (Auto) 0.4, Absolute Neuts (auto) 11.0 H, Absolute Lymphs (auto) 1.29, Nucleated RBC % 0, Differential Comment COMMENT 09/13/19 04:20: Sodium 140, Potassium 3.9, Chloride 112 H, Carbon Dioxide 23.0, Anion Gap 5, BUN 15, Creatinine 0.96, Estim Creat Clear Calc 73.93, Est GFR (MDRD) Af Amer 99, Est GFR (MDRD) Non-Af 82, BUN/Creatinine Ratio 15.5, Glucose 93, Calcium 8.1 L Current Medications Acetaminophen (Tylenol) 650 mg RECTAL Q4H PRN PRN PRN Reason: Pain Score 1-10/Temp > 100.7 F Last Admin: 09/11/19 20:04 Dose: 650 mg Documented by: Acetaminophen (Tylenol) 650 mg PO Q4H PRN PRN PRN Reason: Pain or Fever Last Admin: 09/12/19 16:22 Dose: 650 mg Documented by: Dextrose (D50w Syringe) 0 gm IV X1 PRN; Protocol PRN Reason: Hypoglycemia Enoxaparin Sodium (Lovenox) 40 mg SC DAILY [facility] Last Admin: 09/13/19 08:30 Dose: 40 mg Documented by: Famotidine (Pepcid) 20 mg PO BID [facility] Last Admin: 09/13/19 08:30 Dose: 20 mg Documented by: Glucagon () 1 mg IM .X1 PRN PRN Reason: Hypoglycemia Ceftriaxone Sodium (Rocephin) 1 gm in 50 mls @ 100 mls/hr IV Q24@2200 [facility] Last Infusion: 09/12/19 21:58 Dose: Infused Documented by: Sodium Chloride () 250 mls @ 15 mls/hr IV .[id number] PRN PRN Reason: Saline Flush Sodium Chloride () 250 mls @ 15 mls/hr IV .[id number] PRN PRN Reason: Additional IVPB Infusion Ondansetron HCl (Zofran) 4 mg IV Q8H PRN PRN PRN Reason: NAUSEA/VOMITING Prochlorperazine Edisylate (Compazine Iv) 5 mg IV Q4H PRN PRN PRN Reason: Breakthrough Nausea/Vomiting Sodium Chloride () 10 - 40 ml IV UD PRN PRN Reason: SALINE FLUSH STROKE Vital Signs/Narrative: Vital Signs Temp Pulse Resp BP Pulse Ox 09/13/19 10:00 36.7 C 78 27 H 90/65 99 09/13/19 09:00 101 H 25 H 126/72 H 98 09/13/19 08:00 36.6 C 95 26 H 153/100 H 98 09/13/19 07:25 106 H Medical Necessity - Tobacco Use Smoking Status: Unknown if ever smoked Assessment/Plan All Active Problems (Last Updated 09/12/19 @ 02:52 by Pamela Andres) Normal pressure hydrocephalus (Acute) Respiratory failure requiring intubation (Acute) Sepsis due to urinary tract infection (Acute) 1. Acute metabolic encephalopathy * resolved * 2/2 UTI and severe sepsis in patient with MS * work up negative for CVA with CTA head and neck and head CT 2. UTI * E. coli, ozuna sensitive * on ceftriaxone * transition over to levofloxacin and treat through September 16 3. Severe sepsis: * resolved * 2/2 UTI +/- pneumonia, but ruling COVID-19 4. Acute hypoxic respiratory failure * 2/2 encephalopathy +/- pneumonia * was intubated for airway protection 5. VTE prophylaxis: LMWH Inpatient E&M: [id number] [facility] L2
--- NOTE | 2019-09-13 11:17 | CASEMGMT ---
DICK MAYES assessment: Phone interview with patient for initial transition planning/care coordination assessment. DICK MAYES introduced self and role at [facility], pt voices understanding and consents to assessment at this time. Pt is A/OX4 at this time and answers all questions appropriately at this time. Care providers, pharmacy, and demographics verified at this time. Presentation: Unresponsive at 1314, last known well 1200 per Admitting dx: Acute encephalopathy PCP: Milagros Specialists: Pt states currently no specialists. Preferred [facility]acy: [facility] Insurance: [facility] A/B, MMO Prescription Benefit: yes Living Will/HPOA: Pt states is unsure if he has LW/HPOA at this time. Pt declines info at this time. LNOK: Denise Prescott, Living Arrangements: Pt states lives with in 1 story home and states no concerns at home at this time. Pt states is independent with ADL's. Transportation: Pt states drives self and states no transportation concerns at this time. DME/HHC: Pt states has grab bars in shower and declines need for any further DME at this time. Pt states no hx of HHC or SNF in the past. Pt states no concerns with going home at time of discharge. Pt states is retired. Pt states does not smoke or drink ETOH. Pt states no further concerns/needs at this time. CM to follow for PT/OT evals and for any further discharge planning/needs. Advised pt to ask for CM if any further questions/concerns/needs arise, voices understanding. Pt Goal: Home PLAN: TBD, pending PT/OT evals. [place] DICK MAYES
[2019-09-13] MEDS: Losartan Potassium 50 MG Tablet PO (13:26)
[2019-09-13] MEDS: levoFLOXacin 750 MG Tablet PO (13:26)
[2019-09-13] MEDS: PARoxetine 10 MG Tablet PO (13:27)
[2019-09-13] MEDS: Timolol 0.5% 5ML OPTH.BTL 1 DRP EACH EYE (22:45)
[2019-09-13] MEDS: Latanoprost 0.005% 1 Bottle 1 DRP EACH EYE (22:45)
[2019-09-14] VITALS (20 sets, daily range): BP systolic 117–175; BP diastolic 72–114; PULSE 63–88; RESP 16–27; TEMP 36.4–38.1; O2SAT 92–100
[2019-09-14] MEDS: 0.9% Saline Lock 10 ML Syringe IV (03:19)
[2019-09-14 03:45] LABS: Absolute Lymphocyte Count 1.29 X10^3/uL (0.83-4.51); Absolute Neutrophil Count 9.5 X10^3/uL (2.0-7.7); Basophil# 0.08 X10^3/uL; Basophil% 0.6 % (0-1); Eosinophil# 0.29 X10^3/uL; Eosinophils% 2.3 % (0-5); Hematocrit 37.7 % (40-54); Hemoglobin 12.9 g/dL (13.0-16.5); Lymphocyte # 1.29 X10^3/ul (4.0); Lymphocyte % 10.2 % (19-41); Mean Corp Hgb Conc 34.2 g/dL (32-36); Mean Corpuscular Hgb 31.5 pg (27.0-32.0); Mean Platelet Vol. 9.8 fl (6.2-12.0); Monocyte# 1.43 X10^3/uL; Monocyte% 11.3 % (0-10); NRBC Flagged by Analyzer 0 % (0-5); Neutrophil # 9.54 X10^3/uL (2.7-7.7); Platelet Count 199 K/mm3 (150-450); RBC Distribution Width CV 11.9 % (11.6-14.6); RBC Distribution Width SD 39.7 fl (35.1-43.9); White Blood Count 12.7 K/mm3 (4.4-11.0)
[2019-09-14 03:56] LABS: Anion Gap 6 (5-15); BUN 15 mg/dL (7-18); BUN/Creat Ratio 15.2 RATIO (10-20); Calcium,Total 8.4 mg/dL (8.5-10.1); Chloride 109 mmol/L (98-107); Creatinine, Serum 0.99 mg/dL (0.70-1.30); EST Glomerular Filtration Rate 79 mL/min (>60); Est Glom Filt Rate - Afr Amer 96 mL/min (>60); Estimated Creatinine Clearance 71.69 ml/min; Glucose 88 mg/dL (74-106); Potassium 3.6 mmol/L (3.5-5.1); Sodium Level 139 mmol/L (136-145)
[2019-09-14] MEDS: levoFLOXacin 750 MG Tablet PO (05:28)
--- NOTE | 2019-09-14 06:46 | PCM.PN.INT ---
Subjective: Patient did well overnight from a hemodynamic standpoint. Patient has been tolerating room air and fever curve and blood pressures are improving. Nursing did report patient was very unsteady with attempts to stand up to use the urinal. Patient has no complaints this morning outside of weak legs. General: Alert, Oriented x3, Cooperative, No apparent distress, Well developed, Well nourished, - - Obese. Speaking in full sentences. HEENT: Atraumatic, PERRLA, EOMI, Normocephalic, - - No scleral icterus or injection noted Oral: Moist Mucosa, No Gingival or Mucosal Lesions/ Ulcerations Neck: Supple, No JVD, No Nodes, Trachea Midline Lungs: Clear to auscultation, Normal air movement, No rhonchi, No wheeze, No rales Cardiovascular: Regular rate, Regular Rhythm, Normal S1, Normal S2, No murmurs, No rub noted, No Gallop Abdomen: Bowel Sounds Present, Soft, Non Tender, Non-Distended, Obese Extremities: No clubbing, No cyanosis, No edema, Capillary Refill Less than 3 Seconds Skin: No rashes, No breakdown Musculoskeletal: No Tenderness to Palpation of Joints or Extremities Lymphatic: No Cervical, Supraclavicular, or Inguinal Adenopathy Neurological: Cranial nerves II-XII grossly intact, Neuro grossly intact Psych/Mental Status: Alert and oriented to time, place, person, mood and affect Vital Signs Temp Pulse Resp BP Pulse Ox 37.8 C H 69 23 H 126/97 H 96 09/14/19 04:00 09/14/19 06:00 09/14/19 06:00 09/14/19 06:00 09/14/19 06:00 Oxygen Flow Rate (L/min) 185 Oxygen Delivery Method Room Air Weight: 105.8 kg Body Mass Index (BMI) 31.7 Finger Stick Blood Glucose 130 Intake and Output for Last 24 Hours 09/12/19 09/13/19 09/14/19 23:59 23:59 23:59 Intake Total 3974.96 / 3974.96 1514 / 1514 90 / 90 Output Total 1300 / 1300 1300 / 1500 600 / 600 Balance 2674.96 / 2674.96 214 / 14 -510 / -510 Labs (Last 48 Hours) 09/11/19 09/12/19 09/12/19 13:10 04:00 07:52 WBC RBC Hgb Hct MCV MCH MCHC RDW Std Deviation RDW Coeff of Keke Plt Count MPV Immature Gran % (Auto) Neut % (Auto) Lymph % (Auto) [place] % (Auto) Eos % (Auto) Baso % (Auto) Absolute Neuts (auto) Absolute Lymphs (auto) Nucleated RBC % Differential Comment Diff Path Review Reviewed Sodium Potassium Chloride Carbon Dioxide Anion Gap BUN Creatinine Estim Creat Clear Calc Est GFR (MDRD) Af Amer Est GFR (MDRD) Non-Af BUN/Creatinine Ratio Glucose Calcium TSH 1.07 COVID-19 (ZAKIYA) Pending 09/13/19 09/13/19 09/14/19 04:20 04:20 03:30 WBC 13.7 H 12.7 H RBC 4.29 L 4.10 L Hgb 13.4 12.9 L Hct 39.7 L 37.7 L MCV 92.5 92.0 MCH 31.2 31.5 MCHC 33.8 D 34.2 RDW Std Deviation 41.0 39.7 RDW Coeff of Keke 12.2 11.9 Plt Count 159 199 MPV 10.1 9.8 Immature Gran % (Auto) 0.700 0.600 Neut % (Auto) 80.1 H 75.0 H Lymph % (Auto) 9.[address] [place] % (Auto) 8.0 11.3 H Eos % (Auto) 1.4 2.3 Baso % (Auto) 0.4 0.6 Absolute Neuts (auto) 11.0 H 9.5 H Absolute Lymphs (auto) 1.29 1.29 Nucleated RBC % 0 0 Differential Comment COMMENT Diff Path Review Sodium 140 Potassium 3.9 Chloride 112 H Carbon Dioxide 23.0 Anion Gap 5 BUN 15 Creatinine 0.96 Estim Creat Clear Calc 73.93 Est GFR (MDRD) Af Amer 99 Est GFR (MDRD) Non-Af 82 BUN/Creatinine Ratio 15.5 Glucose 93 Calcium 8.1 L TSH COVID-19 (ZAKIYA) 09/14/19 03:30 WBC RBC Hgb Hct MCV MCH MCHC RDW Std Deviation RDW Coeff of Keke Plt Count MPV Immature Gran % (Auto) Neut % (Auto) Lymph % (Auto) [place] % (Auto) Eos % (Auto) Baso % (Auto) Absolute Neuts (auto) Absolute Lymphs (auto) Nucleated RBC % Differential Comment Diff Path Review Sodium 139 Potassium 3.6 Chloride 109 H Carbon Dioxide 24.0 Anion Gap 6 BUN 15 Creatinine 0.99 Estim Creat Clear Calc 71.69 Est GFR (MDRD) Af Amer 96 Est GFR (MDRD) Non-Af 79 BUN/Creatinine Ratio 15.2 Glucose 88 Calcium 8.4 L TSH COVID-19 (ZAKIYA) Microbiology 09/11/19 20:20 Transtracheal Aspirate Gram Stain - Final 09/11/19 20:20 Transtracheal Aspirate Respiratory Culture - Preliminary Presumptive C albicans Alpha Hemolytic Streptococcus 09/11/19 13:52 Blood Culture (Wb) #2 - Anticubital Right Blood Culture - Preliminary No growth in 48 hours. 09/11/19 13:10 Blood Culture (Wb) - Anticubital Left Blood Culture - Preliminary No growth in 48 hours. 09/11/19 14:48 Urine Catheter - Catheter Urine Culture - Final Presumptive E. coli 09/11/19 16:45 Mucosa - Nose Respiratory Panel (PCR) - Final Medical Necessity - Tobacco Use Smoking Status: Unknown if ever smoked Assessment/Plan All Active Problems (Last Updated 09/12/19 @ 02:52 by Pamela Andres) Normal pressure hydrocephalus (Acute) Respiratory failure requiring intubation (Acute) Sepsis due to urinary tract infection (Acute) RECOMMENDATIONS: 1. Await COVID testing 2. Continue work with PT/OT 3. Complete 7 days of antibiotics 4. Okay to leave the intensive care unit from my perspective 5. Hemodynamically stable on room air. Will sign off from a critical care perspective IMPRESSIONS: 1. Acute hypoxemic respiratory failure Resolved. The patient was initially intubated in the emergency department over concerns for airway protection in the setting of encephalopathy. His mentation has subsequently analyzed along with his oxygenation status. Encourage incentive spirometer use and mobilize patient as tolerated. Low clinical index of suspicion for underlying pulmonary infectious etiology. 2. Acute metabolic encephalopathy/delirium Most likely infectious in nature. Patient is growing E. coli from the urinary tract. CT imaging of the head of spine unremarkable. Patient's electrolytes have normalized. Continue delirium protocol. Patient's unsteadiness may be secondary to normal pressure hydrocephalus. Defer to hospitalist on discharge. 3. Severe sepsis secondary to E. coli UTI Patient appears to be doing well from a hemodynamic standpoint. Patient has responded well to antibiotics. Patient was transitioned to Levaquin yesterday by hospitalist. Patient likely require 7 days of antibiotics given complicated UTI. Patient has been doing well, so will sign off from a critical care perspective. 4. History of multiple sclerosis/normal pressure hydrocephalus/hypertension/hypothyroidism Complicates care, management, recovery and prognosis. Continue home medications as indicated. Patient reportedly has difficulty with standing. Unclear if this is related to patient's work-up for normal pressure hydrocephalus. Await therapy recommendations. Inpatient E&M: 49419 Subs Hosp L2
[2019-09-14] MEDS: Famotidine 20 MG Tablet PO ×2 (08:44→22:29)
[2019-09-14] MEDS: PARoxetine 10 MG Tablet PO (08:44)
[2019-09-14] MEDS: Losartan Potassium 50 MG Tablet PO (08:44)
[2019-09-14] MEDS: Enoxaparin 40 MG/0.4 ML Syringe SC (08:45)
--- NOTE | 2019-09-14 12:19 | PCM.PN.HOSP ---
Patient Problems: Active and Suspected Problems (Last Updated 09/12/19 @ 02:52 by Pamela Andres) Respiratory failure requiring intubation (Acute) Sepsis due to urinary tract infection (Acute) Reason for Visit: encephalopathy Subjective: Feels weak all over. Has chronic LLE weakness due to his MS. Vitals/I&O's: Vital Signs Temp Pulse Resp BP Pulse Ox 36.6 C 63 23 H 175/85 H 98 09/14/19 10:00 09/14/19 11:07 09/14/19 11:00 09/14/19 11:00 09/14/19 11:00 Oxygen Flow Rate (L/min) 185 Oxygen Delivery Method Room Air Weight: 105.8 kg Body Mass Index (BMI) 31.7 Finger Stick Blood Glucose 130 Intake and Output for Last 24 Hours 09/12/19 09/13/19 09/14/19 23:59 23:59 23:59 Intake Total 3974.96 / 3974.96 1514 / 1514 90 / 90 Output Total 1300 / 1300 1300 / 1500 600 / 600 Balance 2674.96 / 2674.96 214 / 14 -510 / -510 General: Alert, Cooperative, No apparent distress HEENT: Atraumatic, Normocephalic Oral: Moist Mucosa, No Gingival or Mucosal Lesions/ Ulcerations Neck: No Nodes, Trachea Midline Lungs: Clear to auscultation, Normal air movement, No rhonchi, No wheeze, No rales Cardiovascular: Regular rate, Regular Rhythm, Normal S1, Normal S2, No murmurs Abdomen: Bowel Sounds Present, Soft, Non Tender, Non-Distended, No Hepato-splenomegaly Extremities: No edema, No Calf Tenderness Skin: No rashes, No breakdown Musculoskeletal: No Tenderness to Palpation of Joints or Extremities, No Muscle Wasting Psych/Mental Status: Normal Affect, Appropriate Microbiology Past 72 Hours 09/11/19 20:20 Transtracheal Aspirate Gram Stain - Final 09/11/19 20:20 Transtracheal Aspirate Respiratory Culture - Preliminary GNR Possible Haemophilus sp. Mixed Yoselin 09/11/19 13:52 Blood Culture (Wb) #2 - Anticubital Right Blood Culture - Preliminary No growth in 48 hours. 09/11/19 13:10 Blood Culture (Wb) - Anticubital Left Blood Culture - Preliminary No growth in 48 hours. 09/11/19 14:48 Urine Catheter - Catheter Urine Culture - Final Presumptive E. coli 09/11/19 16:45 Mucosa - Nose Respiratory Panel (PCR) - Final Laboratory Results 09/12/19 07:52: COVID-19 (ZAKIYA) Pending 09/14/19 03:30: WBC 12.7 H, RBC 4.10 L, Hgb 12.9 L, Hct 37.7 L, MCV 92.0, MCH 31.5, MCHC 34.2, RDW Std Deviation 39.7, RDW Coeff of Keke 11.9, Plt Count 199, MPV 9.8, Immature Gran % (Auto) 0.600, Neut % (Auto) 75.0 H, Lymph % (Auto) 10.2 L, [place] % (Auto) 11.3 H, Eos % (Auto) 2.3, Baso % (Auto) 0.6, Absolute Neuts (auto) 9.5 H, Absolute Lymphs (auto) 1.29, Nucleated RBC % 0 09/14/19 03:30: Sodium 139, Potassium 3.6, Chloride 109 H, Carbon Dioxide 24.0, Anion Gap 6, BUN 15, Creatinine 0.99, Estim Creat Clear Calc 71.69, Est GFR (MDRD) Af Amer 96, Est GFR (MDRD) Non-Af 79, BUN/Creatinine Ratio 15.2, Glucose 88, Calcium 8.4 L Current Medications Acetaminophen (Tylenol) 650 mg RECTAL Q4H PRN PRN PRN Reason: Pain Score 1-10/Temp > 100.7 F Last Admin: 09/11/19 20:04 Dose: 650 mg Documented by: Acetaminophen (Tylenol) 650 mg PO Q4H PRN PRN PRN Reason: Pain or Fever Last Admin: 09/12/19 16:22 Dose: 650 mg Documented by: Dextrose (D50w Syringe) 0 gm IV X1 PRN; Protocol PRN Reason: Hypoglycemia Enoxaparin Sodium (Lovenox) 40 mg SC DAILY [facility] Last Admin: 09/14/19 08:45 Dose: 40 mg Documented by: Famotidine (Pepcid) 20 mg PO BID [facility] Last Admin: 09/14/19 08:44 Dose: 20 mg Documented by: Glucagon () 1 mg IM .X1 PRN PRN Reason: Hypoglycemia Sodium Chloride () 250 mls @ 15 mls/hr IV .[id number] PRN PRN Reason: Saline Flush Sodium Chloride () 250 mls @ 15 mls/hr IV .[id number] PRN PRN Reason: Additional IVPB Infusion Latanoprost (Xalatan Opthalmic) 1 drop EACH EYE QHS [facility] Last Admin: 09/13/19 22:45 Dose: 1 dose Documented by: Levofloxacin (Levaquin Tablet) 750 mg PO DAILY@0600 [facility] Stop: 09/17/19 23:59 Last Admin: 09/14/19 05:28 Dose: 750 mg Documented by: Losartan Potassium (Cozaar) 50 mg PO DAILY [facility] Last Admin: 09/14/19 08:44 Dose: 50 mg Documented by: Ondansetron HCl (Zofran) 4 mg IV Q8H PRN PRN PRN Reason: NAUSEA/VOMITING Paroxetine HCl (Paxil) 10 mg PO DAILY [facility] Last Admin: 09/14/19 08:44 Dose: 10 mg Documented by: Prochlorperazine Edisylate (Compazine Iv) 5 mg IV Q4H PRN PRN PRN Reason: Breakthrough Nausea/Vomiting Sodium Chloride () 10 - 40 ml IV UD PRN PRN Reason: SALINE FLUSH Last Admin: 09/14/19 03:19 Dose: 10 ml Documented by: Timolol Maleate (Timoptic) 1 drop EACH EYE QHS [facility] Last Admin: 09/13/19 22:45 Dose: 1 drop Documented by: STROKE Vital Signs/Narrative: Vital Signs Temp Pulse Resp BP Pulse Ox 09/14/19 11:07 63 09/14/19 11:00 65 23 H 175/85 H 98 09/14/19 10:00 36.6 C 72 27 H 144/94 H 95 09/14/19 09:00 82 19 H 160/97 H 97 09/14/19 08:31 96 Medical Necessity - Tobacco Use Smoking Status: Unknown if ever smoked Assessment/Plan All Active Problems (Last Updated 09/12/19 @ 02:52 by Pamela Andres) Normal pressure hydrocephalus (Acute) Respiratory failure requiring intubation (Acute) Sepsis due to urinary tract infection (Acute) 1. Acute metabolic encephalopathy resolved 2/2 UTI and severe sepsis in patient with MS work up negative for CVA with CTA head and neck and head CT 2. UTI E. coli, ozuna sensitive on ceftriaxone transition over to levofloxacin and treat through September 16 3. Severe sepsis: resolved 2/2 UTI +/- pneumonia, but ruling out COVID-19 4. Acute hypoxic respiratory failure 2/2 encephalopathy +/- pneumonia was intubated for airway protection 5. Debility 2/2 above. Not an MS flare PT recommends additional therapy pt to consider SNF 6. VTE prophylaxis: LMWH Transfer out of ICU. Will have to remain cohorted until COVID-19 ruled out. Inpatient E&M: 84857 Subs Hosp L2
--- NOTE | 2019-09-14 15:13 | CASEMGMT ---
MARY called patient's room to talk with him about a d/c plan. He still intends on returning home at d/c and thinks he will be fine. MARY will talk with PT to see what they think. Hortensia W[place] MSW
[2019-09-15] MEDS: Latanoprost 0.005% 1 Bottle 1 DRP EACH EYE (00:04)
[2019-09-15] MEDS: Timolol 0.5% 5ML OPTH.BTL 1 DRP EACH EYE (00:05)
[2019-09-15 03:58] VITALS: BP 126/66; PULSE 73; RESP 17; TEMP 37.4; O2SAT 98
[2019-09-15] MEDS: levoFLOXacin 750 MG Tablet PO (05:55)
[2019-09-15 08:57] VITALS: O2SAT 96
[2019-09-15] MEDS: Enoxaparin 40 MG/0.4 ML Syringe SC (08:59)
[2019-09-15] MEDS: Famotidine 20 MG Tablet PO (08:59)
[2019-09-15] MEDS: Losartan Potassium 50 MG Tablet PO (08:59)
[2019-09-15] MEDS: PARoxetine 10 MG Tablet PO (08:59)
[2019-09-15 09:02] VITALS: BP 118/57; PULSE 62; RESP 14; TEMP 36.8; O2SAT 97
--- NOTE | 2019-09-15 10:14 | NURSING ---
pt's Denise updated on pt's COVID-19 results and POC.
--- NOTE | 2019-09-15 11:24 | PCM.DC ---
- Discharge Diagnoses Current Active Problems: Current Active and Chronic Problems (Last Updated 09/14/19 @ 14:42 by Vannessa Henson) Multiple sclerosis (Chronic) Respiratory failure requiring intubation (Acute) Sepsis due to urinary tract infection (Acute) You will use the following diet at home:: Regular Your food should be the consistency of: Regular Your liquids should be the consistency of: Regular/Thin Discharge Activity: Return to Normal Activity Call your doctor if you observe: Fever of 101 or Higher, Shortness of breath Allergies/Adverse Reactions: Allergies No Known Allergies Allergy (Verified 09/11/19 14:36) Medications to take at Discharge Donepezil HCl 5 mg PO QHS 09/11/19 Losartan Potassium 50 mg PO DAILY 09/11/19 Paroxetine [Paxil] 10 mg PO DAILY 09/11/19 Thyroid,Pork [Codorus Thyroid] 120 mg PO DAILY 09/11/19 Latanoprost 0.005% [Xalatan Opthalmic] 1 drp EACH EYE QHS 09/12/19 Timolol 0.5% [Timoptic] 1 drp EACH EYE QHS 09/12/19 bupropion HCl 150 mg 24 hr tablet, extended release 150 mg PO QAM 09/14/19 cholecalciferol (vitamin D3) 4,000 unit capsule 5,000 unit PO DAILY cap 09/14/19 naltrexone 50 mg tablet 4.5 mg PO DAILY tab 09/14/19 ocrelizumab 30 mg/mL intravenous solution 300 mg .ROUTE [id number] ml 09/14/19 oxybutynin chloride 5 mg tablet,extended release 24 hr mg PO 09/14/19 vardenafil 10 mg tablet mg PO 09/14/19 levoFLOXacin tablet [Levaquin tablet] 750 mg PO DAILY@0600 #3 tab 09/15/19 The following prescriptions were given: levoFLOXacin tablet [Levaquin tablet] 750 mg PO DAILY@0600 #3 tab Transmission Status: Pending to [facility]/pharmacy #[id number] Primary Care Physician: Ale Linares MD [Primary Care Provider] - Within 1 Week Test Results: Test results from this visit will be discussed in further detail at your follow-up appointment, if applicable. Please Follow Up With: Surendra Crowell MD When: 09/25/2019, already scheduled Proposed Discharge Date: 09/15/19
--- NOTE | 2019-09-15 11:26 | PCM.DC.SUM ---
Discharge Date and Diagnosis - Problem List Patient Problems: Active and Suspected Problems (Last Updated 09/14/19 @ 14:42 by Vannessa Henson) Respiratory failure requiring intubation (Acute) Sepsis due to urinary tract infection (Acute) Date of Admission: 09/11/19 Date of Discharge: 09/15/19 - Primary Discharge Diagnosis Active and Suspected Problems (Last Updated 09/14/19 @ 14:42 by Vannessa Henson) 1. Acute metabolic encephalopathy resolved 2/2 UTI and severe sepsis in patient with MS work up negative for CVA with CTA head and neck and head CT 2. UTI E. coli, ozuna sensitive on ceftriaxone transition over to levofloxacin and treat through September 16 3. Severe sepsis: resolved 2/2 UTI +/- pneumonia, but ruling out COVID-19 4. Acute hypoxic respiratory failure 2/2 encephalopathy +/- pneumonia was intubated for airway protection 5. Debility 2/2 above. Not an MS flare PT recommends additional therapy. Chronic weakness in LLE with the onset of his MS. pt go home with or without home care did better with therapy on 09/13 - Secondary Discharge Diagnosis Chronic Problems (Last Updated 09/14/19 @ 14:42 by Vannessa Henson) Multiple sclerosis (Chronic) Hospital Course and Treatment Imaging Results: Clinical Impression(s) from Imaging Studies Brain CT 09/11/19 13:03 IMPRESSION: 1. No CT evidence of intracranial bleeding, acute ischemic infarct or acute intracranial abnormality at this time. 2. Chronic white matter ischemic changes in both cerebral hemispheres. Electronically Signed: Yoav Schuler MD at 13:51 EDT , Service support , ADDENDUM: 09/11/19 1402 IMPRESSION: 1. No CT evidence of intracranial bleeding, acute ischemic infarct or acute intracranial abnormality at this time. 2. Chronic white matter ischemic changes in both cerebral hemispheres. N.B. : The above information has been verbally conveyed by Yoav Schuler MD to Willie Bartholomew MD, on 09/11/2019 13:55:49 (ET). Electronically Signed: Yoav Schuler MD at 13:51 EDT , Service support , Chest X-Ray 09/11/19 13:03 IMPRESSION: 1. Minimal subsegmental atelectasis in the left infrahilar region in a limited inspiratory chest radiograph. 2. NG tube sidehole is in the proximal duodenum. The NG tube tip is not included in the scan and this at least in the descending duodenum if not in the horizontal portion of the duodenum. 3. Subglottic position of the endotracheal tube tip. Distal repositioning will be helpful. Electronically Signed: Yoav Schuler MD at 14:29 EDT , Service support , Head/Neck CTA 09/11/19 13:37 IMPRESSION: 1. Normal CTA head without suspicious vaso-occlusive disease of the anterior and posterior intracranial circulation. 2. Widely patent right posterior communicating artery with a hypoplastic right P1 segment. 3. Hypoplastic left vertebral artery terminating directly into the left PICA (posterior inferior cerebellar artery). 4. Widely patent bilateral common carotid arteries, bilateral common carotid bifurcations, bilateral internal and external carotid arteries and bilateral vertebral arteries. 5. Less than 20% smooth stenosis of the dominant right vertebral artery at its subclavian origin. 6. Widely patent aortic arch and origins of the great vessels. Electronically Signed: Yoav Schuler MD at 14:14 EDT , Service support , Chest X-Ray 09/12/19 07:19 IMPRESSION: 1. No acute cardiopulmonary pathology given the markedly limited inspiratory effort. 2. Clearing of subsegmental atelectases in the right lung base and discoid atelectasis in left lower lobe. 3. ET tube tip is now at the thoracic inlet, previously above the thoracic inlet. 4. NG tube tip is in the gastric antrum. Electronically Signed: Yoav Schuler MD at 10:01 EDT , Service support , Nghia: DONI Operations: None Procedures: Intubation Summary of Care Provided: The patient is a 69 year old M presents unresponsive. Patient was intubated for airway protection. Patient was and sepsis with UTI. Patient was checked for COVID which came back as negative on the . Patient was found to have E. coli in his urine but also Haemophilus possibly in his sputum. Patient was on Levaquin and will continue with 7 more days of the Levaquin to complete. Patient is weak. Patient has chronic left lower extremity weakness since the onset of his multiple sclerosis. Patient will be discharged home with or without home care, further conversation took place with the case management and the patient. [] Patient Problems: Active and Suspected Problems (Last Updated 09/14/19 @ 14:42 by Vannessa Henson) Respiratory failure requiring intubation (Acute) Sepsis due to urinary tract infection (Acute) - Physical Exam Vitals/I&O's: Vital Signs Temp Pulse Resp BP Pulse Ox 36.8 C 62 14 118/57 L 97 09/15/19 09:02 09/15/19 09:02 09/15/19 09:02 09/15/19 09:02 09/15/19 09:02 Oxygen Flow Rate (L/min) 185 Oxygen Delivery Method Room Air Weight: 103.5 kg Body Mass Index (BMI) 31.7 Finger Stick Blood Glucose 130 Intake and Output for Last 24 Hours 09/13/19 09/14/19 09/15/19 23:59 23:59 23:59 Intake Total 1514 / 1514 710 / 710 250 / 250 Output Total 1300 / 1500 1250 / 1250 Balance 214 / 14 -540 / -540 250 / 250 General: Alert, Cooperative, No apparent distress HEENT: Atraumatic, Normocephalic Oral: Moist Mucosa, No Gingival or Mucosal Lesions/ Ulcerations Neck: No Nodes, Trachea Midline Lungs: Clear to auscultation, Normal air movement, No rhonchi, No wheeze, No rales Cardiovascular: Regular rate, Regular Rhythm, Normal S1, Normal S2, No murmurs Abdomen: Bowel Sounds Present, Soft, Non Tender, Non-Distended, No Hepato-splenomegaly Extremities: No edema, No Calf Tenderness Microbiology Past 72 Hours 09/11/19 20:20 Transtracheal Aspirate Gram Stain - Final 09/11/19 20:20 Transtracheal Aspirate Respiratory Culture - Preliminary GNR Possible Haemophilus sp. Mixed Yoselin 09/11/19 13:52 Blood Culture (Wb) #2 - Anticubital Right Blood Culture - Preliminary No growth in 48 hours. 09/11/19 13:10 Blood Culture (Wb) - Anticubital Left Blood Culture - Preliminary No growth in 48 hours. 09/11/19 14:48 Urine Catheter - Catheter Urine Culture - Final Presumptive E. coli 09/11/19 16:45 Mucosa - Nose Respiratory Panel (PCR) - Final Laboratory Results 09/12/19 07:52: COVID-19 (ZAKIYA) Not Detected Current Medications Acetaminophen (Tylenol) 650 mg RECTAL Q4H PRN PRN PRN Reason: Pain Score 1-10/Temp > 100.7 F Last Admin: 09/11/19 20:04 Dose: 650 mg Documented by: Acetaminophen (Tylenol) 650 mg PO Q4H PRN PRN PRN Reason: Pain or Fever Last Admin: 09/12/19 16:22 Dose: 650 mg Documented by: Dextrose (D50w Syringe) 0 gm IV X1 PRN; Protocol PRN Reason: Hypoglycemia Enoxaparin Sodium (Lovenox) 40 mg SC DAILY [facility] Last Admin: 09/15/19 08:59 Dose: 40 mg Documented by: Famotidine (Pepcid) 20 mg PO BID [facility] Last Admin: 09/15/19 08:59 Dose: 20 mg Documented by: Glucagon () 1 mg IM .X1 PRN PRN Reason: Hypoglycemia Sodium Chloride () 250 mls @ 15 mls/hr IV .[id number] PRN PRN Reason: Saline Flush Sodium Chloride () 250 mls @ 15 mls/hr IV .[id number] PRN PRN Reason: Additional IVPB Infusion Latanoprost (Xalatan Opthalmic) 1 drop EACH EYE QHS [facility] Last Admin: 09/15/19 00:04 Dose: 1 dose Documented by: Levofloxacin (Levaquin Tablet) 750 mg PO DAILY@0600 [facility] Stop: 09/17/19 23:59 Last Admin: 09/15/19 05:55 Dose: 750 mg Documented by: Losartan Potassium (Cozaar) 50 mg PO DAILY [facility] Last Admin: 09/15/19 08:59 Dose: 50 mg Documented by: Ondansetron HCl (Zofran) 4 mg IV Q8H PRN PRN PRN Reason: NAUSEA/VOMITING Paroxetine HCl (Paxil) 10 mg PO DAILY [facility] Last Admin: 09/15/19 08:59 Dose: 10 mg Documented by: Prochlorperazine Edisylate (Compazine Iv) 5 mg IV Q4H PRN PRN PRN Reason: Breakthrough Nausea/Vomiting Sodium Chloride () 10 - 40 ml IV UD PRN PRN Reason: SALINE FLUSH Last Admin: 09/14/19 03:19 Dose: 10 ml Documented by: Timolol Maleate (Timoptic) 1 drop EACH EYE QHS [facility] Last Admin: 09/15/19 00:05 Dose: 1 drop Documented by: Discharge Diet: No Restrictions Discharge Activity: Return to Normal Activity Call your doctor if you observe: Fever of 101 or Higher, Shortness of breath Home Medications: Medications to take at Discharge Donepezil HCl 5 mg PO QHS 09/11/19 Losartan Potassium 50 mg PO DAILY 09/11/19 Paroxetine [Paxil] 10 mg PO DAILY 09/11/19 Thyroid,Pork [[place] Thyroid] 120 mg PO DAILY 09/11/19 Latanoprost 0.005% [Xalatan Opthalmic] 1 drp EACH EYE QHS 09/12/19 Timolol 0.5% [Timoptic] 1 drp EACH EYE QHS 09/12/19 bupropion HCl 150 mg 24 hr tablet, extended release 150 mg PO QAM 09/14/19 cholecalciferol (vitamin D3) 4,000 unit capsule 5,000 unit PO DAILY cap 09/14/19 naltrexone 50 mg tablet 4.5 mg PO DAILY tab 09/14/19 ocrelizumab 30 mg/mL intravenous solution 300 mg .ROUTE [id number] ml 09/14/19 oxybutynin chloride 5 mg tablet,extended release 24 hr mg PO 09/14/19 vardenafil 10 mg tablet mg PO 09/14/19 levoFLOXacin tablet [Levaquin tablet] 750 mg PO DAILY@0600 #3 tab 09/15/19 Following Prescrptions Were Given to Patient: levoFLOXacin tablet [Levaquin tablet] 750 mg PO DAILY@0600 #3 tab Transmission Status: Pending to [facility]/pharmacy #[id number] Primary Care Physician: Ale Linares MD [Primary Care Provider] - Within 1 Week Please Follow Up With: Surendra Crowell MD When: 09/25/2019, already scheduled Disposition: Home with Home Health Minutes spent on discharge:: 35 Patient Condition:: Fair Medical Necessity - Tobacco Use Smoking Status: Never smoker Meaningful Use Info Meaningful Use Diagnoses (Choose all that apply): None applicable Inpatient E&M: 00914 Disch Hosp
--- NOTE | 2019-09-15 13:12 | NURSING ---
dc instructions reviewed with pt. this RN also called pt's , Denise and reviewed dc paperwork with her as well
== END 2019-09-15 13:15 | disposition home health service (06) | DRG 871 ==
LOC: ED 13:53 → ICU 16:00 → MS2 09-14 18:36
PROVIDERS: Family Medicine; Internal Medicine Critical Care Medicine; Admitting Provider Internal Medicine; Emergency Provider Emergency Medicine; PCP Internal Medicine
DX: A41.51 Sepsis due to Escherichia coli [E. coli] (principal); G93.41 Metabolic encephalopathy; J96.01 Acute respiratory failure with hypoxia; G91.2 (Idiopathic) normal pressure hydrocephalus; N30.01 Acute cystitis with hematuria; R65.20 Severe sepsis without septic shock; G35 Multiple sclerosis; R53.81 Other malaise; Z79.899 Other long term (current) drug therapy; I10 Essential (primary) hypertension; E03.9 Hypothyroidism, unspecified; F32.9 Major depressive disorder, single episode, unspecified; E66.9 Obesity, unspecified; Z68.32 Body mass index [BMI] 32.0-32.9, adult
CPT/HCPCS: 31500; 31720; 36600; 51702; 70450; 70496; 70498; 71045; 80048; 80076; 81001; 82550; 82962; 83605; 83735; 84100; 84145; 84443; 84484; 85025; 85379; 85610; 85730; 86140; 87040; 87070; 87077; 87086; 87088; 87186; 87205; 87633; 87635; 87641; 93005; 94002; 94003; 94660; 94762; 96365; 96375; 97110; 97116; 97162; 97166; 97530; 97535; 99251; 99285; G2023; J7040; Q9967; A4216; G0463; U0004

== ENCOUNTER → 2019-09-17 | Outpatient (CLI) | payer MEDICARE, OTHER, SELFPAY ==
[2019-09-11 16:25] VITALS: BMI 31.7
--- NOTE | 2019-09-17 15:23 | VDLE_ITS ---
Reason For Study: Calf pain RIGHT LEFT GSV is normal. GSV is normal. CFV is compressible, spontaneous, phasic, CFV is compressible, spontaneous, phasic, competent and demonstrates normal competent, and demonstrates normal augmentation. augmentation. FV is compressible, spontaneous, phasic, FV is compressible, spontaneous, phasic, competent and demonstrates normal competent and demonstrates normal augmentation. augmentation. POP V is compressible, spontaneous, phasic, POP V is compressible, spontaneous, phasic, competent and demonstrates normal competent and demonstrates normal augmentation. augmentation. T/P Trunk is compressible. T/P Trunk is compressible. PTV is compressible. PTV is compressible. RT PerV is compressible. LT PerV is compressible. Procedure Exam performed in department. A preliminary report was called and/or faxed to [facility]. Interpretation Summary No evidence for acute deep venous thrombosis bilateral lower extremities with patent and compressible bilateral great saphenous veins. Ordering Physician: Ale Linares Referring Physician: Ale Linares Performed By: Sowmya Espino RVT
== END | disposition home or self-care (01) ==
LOC: CVS 15:23
PROVIDERS: PCP Internal Medicine; Referring Provider Internal Medicine; Visit Provider Internal Medicine
DX: M79.662 Pain in left lower leg (principal); M79.661 Pain in right lower leg
CPT/HCPCS: 93970

== ENCOUNTER → 2019-09-28 | Outpatient (CLI) | payer MEDICARE, OTHER, SELFPAY ==
[2019-09-23 13:10] VITALS: BMI 31.7
[2019-09-28 15:03] LABS: Absolute Lymphocyte Count 1.76 X10^3/uL (0.83-4.51); Absolute Neutrophil Count 5.5 X10^3/uL (2.0-7.7); Basophil# 0.12 X10^3/uL; Basophil% 1.4 % (0-1); Eosinophil# 0.23 X10^3/uL; Eosinophils% 2.6 % (0-5); Hematocrit 42.4 % (40-54); Hemoglobin 14.4 g/dL (13.0-16.5); Lymphocyte # 1.76 X10^3/ul (4.0); Lymphocyte % 20.2 % (19-41); Mean Corpuscular Hgb 30.9 pg (27.0-32.0); Mean Platelet Vol. 9.9 fl (6.2-12.0); Monocyte# 1.15 X10^3/uL; Monocyte% 13.2 % (0-10); NRBC Flagged by Analyzer 0 % (0-5); Neutrophil # 5.45 X10^3/uL (2.7-7.7); Neutrophil % 62.4 % (47-70); Platelet Count 427 K/mm3 (150-450); RBC Distribution Width SD 39.3 fl (35.1-43.9); Red Blood Count 4.66 M/mm3 (4.6-6.2); White Blood Count 8.7 K/mm3 (4.4-11.0)
[2019-09-28 15:20] LABS: Vitamin B12 616 pg/mL (211-911)
== END | disposition home or self-care (01) ==
LOC: MTLAB 11:21
PROVIDERS: PCP Internal Medicine; Referring Provider Psychiatry & Neurology Neurology; Visit Provider Psychiatry & Neurology Neurology
DX: G35 Multiple sclerosis (principal)
CPT/HCPCS: 36415; 82607; 82746; 85025

== ENCOUNTER → 2019-11-29 | Outpatient (CLI) | payer MEDICARE, OTHER, SELFPAY ==
[2019-11-04 21:18] VITALS: BMI 31.7
[2019-11-29 15:16] LABS: Absolute Lymphocyte Count 1.81 X10^3/uL (0.83-4.51); Absolute Neutrophil Count 3.9 X10^3/uL (2.0-7.7); Basophil# 0.08 X10^3/uL; Basophil% 1.2 % (0-1); Eosinophil# 0.24 X10^3/uL; Eosinophils% 3.5 % (0-5); Hematocrit 47.5 % (40-54); Hemoglobin 15.9 g/dL (13.0-16.5); Lymphocyte # 1.81 X10^3/ul (4.0); Lymphocyte % 26.6 % (19-41); Mean Corp Hgb Conc 33.5 g/dL (32-36); Mean Corpuscular Hgb 31.4 pg (27.0-32.0); Mean Corpuscular Volume 93.9 fL (80-94); Mean Platelet Vol. 10.2 fl (6.2-12.0); Monocyte# 0.79 X10^3/uL; Monocyte% 11.6 % (0-10); NRBC Flagged by Analyzer 0 % (0-5); Neutrophil # 3.86 X10^3/uL (2.7-7.7); Neutrophil % 56.8 % (47-70); Platelet Count 291 K/mm3 (150-450); RBC Distribution Width CV 12.8 % (11.6-14.6); RBC Distribution Width SD 43.4 fl (35.1-43.9); Red Blood Count 5.06 M/mm3 (4.6-6.2); White Blood Count 6.8 K/mm3 (4.4-11.0)
[2019-11-29 15:25] LABS: ALB/GLOB Ratio 1.2 RATIO (0.9-2.4); AST(SGOT) 25 U/L (15-37); Alanine Aminotransfer ALT/SGPT 51 U/L (16-61); Albumin, Serum 4.1 g/dL (3.2-5.0); Alkaline Phosphatase 96 U/L (45-117); Anion Gap 6 (5-15); BUN 20 mg/dL (7-18); BUN/Creat Ratio 18.3 RATIO (10-20); Calcium,Total 8.9 mg/dL (8.5-10.1); Chloride 104 mmol/L (98-107); Creatinine, Serum 1.09 mg/dL (0.70-1.30); EST Glomerular Filtration Rate 71 mL/min (>60); Est Glom Filt Rate - Afr Amer 86 mL/min (>60); Globulin 3.5 g/dL (2.2-4.2); Glucose 89 mg/dL (74-106); Potassium 3.6 mmol/L (3.5-5.1); Protein, Total 7.6 g/dL (6.4-8.2); Sodium Level 140 mmol/L (136-145)
== END | disposition home or self-care (01) ==
PROVIDERS: PCP Internal Medicine
DX: G35 Multiple sclerosis (principal); Z79.899 Other long term (current) drug therapy
CPT/HCPCS: 36415; 80053; 85025

== ENCOUNTER → 2019-12-14 | Outpatient (CLI) | payer MEDICARE, OTHER, SELFPAY ==
[2019-11-04 21:18] VITALS: BMI 31.7
[2019-12-14 16:17] LABS: ALB/GLOB Ratio 1.1 RATIO (0.9-2.4); AST(SGOT) 21 U/L (15-37); Alanine Aminotransfer ALT/SGPT 41 U/L (16-61); Alkaline Phosphatase 92 U/L (45-117); Anion Gap 4 (5-15); BUN 17 mg/dL (7-18); BUN/Creat Ratio 15.6 RATIO (10-20); Calcium,Total 8.8 mg/dL (8.5-10.1); Chloride 105 mmol/L (98-107); Creatinine, Serum 1.09 mg/dL (0.70-1.30); EST Glomerular Filtration Rate 71 mL/min (>60); Est Glom Filt Rate - Afr Amer 86 mL/min (>60); Globulin 3.6 g/dL (2.2-4.2); Glucose 108 mg/dL (74-106); Potassium 3.8 mmol/L (3.5-5.1); Protein, Total 7.6 g/dL (6.4-8.2); Sodium Level 137 mmol/L (136-145)
[2019-12-16 12:09] LABS: Immunoglobulin A 172 mg/dL (61-437); Immunoglobulin G 955 mg/dL (603-1613)
[2019-12-16 15:25] LABS: Immunoglobulin M 16 mg/dL (20-172)
== END | disposition home or self-care (01) ==
LOC: MTLAB 11:10
PROVIDERS: PCP Internal Medicine; Referring Provider Internal Medicine; Visit Provider Internal Medicine
DX: G35 Multiple sclerosis (principal); Z79.899 Other long term (current) drug therapy
CPT/HCPCS: 36415; 80053; 82784

== ENCOUNTER → 2020-02-22 | Outpatient (CLI) | payer MEDICARE, OTHER, SELFPAY ==
[2020-01-06 15:16] VITALS: BMI 31.7
[2020-02-22 17:49] LABS: Absolute Lymphocyte Count 1.84 X10^3/uL (0.83-4.51); Absolute Neutrophil Count 3.7 X10^3/uL (2.0-7.7); Basophil# 0.09 X10^3/uL; Basophil% 1.3 % (0-1); Eosinophil# 0.42 X10^3/uL; Eosinophils% 5.9 % (0-5); Hematocrit 45.4 % (40-54); Hemoglobin 15.1 g/dL (13.0-16.5); Lymphocyte # 1.84 X10^3/ul (4.0); Lymphocyte % 26.1 % (19-41); Mean Corp Hgb Conc 33.3 g/dL (32-36); Mean Corpuscular Hgb 30.5 pg (27.0-32.0); Mean Corpuscular Volume 91.7 fL (80-94); Mean Platelet Vol. 10.1 fl (6.2-12.0); Monocyte# 0.96 X10^3/uL; Monocyte% 13.6 % (0-10); NRBC Flagged by Analyzer 0 % (0-5); Neutrophil # 3.74 X10^3/uL (2.7-7.7); Platelet Count 287 K/mm3 (150-450); RBC Distribution Width CV 12.2 % (11.6-14.6); RBC Distribution Width SD 40.8 fl (35.1-43.9); Red Blood Count 4.95 M/mm3 (4.6-6.2); White Blood Count 7.1 K/mm3 (4.4-11.0)
[2020-02-22 17:57] LABS: AST(SGOT) 23 U/L (15-37); Alanine Aminotransfer ALT/SGPT 42 U/L (16-61); Albumin, Serum 3.9 g/dL (3.2-5.0); Alkaline Phosphatase 92 U/L (45-117); Anion Gap 3 (5-15); BUN 21 mg/dL (7-18); BUN/Creat Ratio 19.1 RATIO (10-20); Calcium,Total 9.1 mg/dL (8.5-10.1); Chloride 106 mmol/L (98-107); EST Glomerular Filtration Rate 70 mL/min (>60); Est Glom Filt Rate - Afr Amer 85 mL/min (>60); Globulin 3.8 g/dL (2.2-4.2); Glucose 73 mg/dL (74-106); Protein, Total 7.7 g/dL (6.4-8.2); Sodium Level 139 mmol/L (136-145)
== END | disposition home or self-care (01) ==
LOC: MTLAB 14:59
PROVIDERS: PCP Internal Medicine; Referring Provider Internal Medicine; Visit Provider Internal Medicine
DX: Z79.899 Other long term (current) drug therapy (principal)
CPT/HCPCS: 36415; 80053; 85025

== ENCOUNTER → 2020-08-02 14:21 | Outpatient (CLI) | payer MEDICARE, OTHER, SELFPAY ==
[2020-01-06 15:16] VITALS: BMI 31.7
[2020-08-06 09:36] LABS: Immunoglobulin A 193 mg/dL (61-437); Immunoglobulin G 996 mg/dL (603-1613); Immunoglobulin M 30 mg/dL (15-143)
[2020-08-07 10:51] LABS: Immunoglobulin E 4 IU/mL (6-495)
== END ==
PROVIDERS: PCP Internal Medicine
DX: G35 Multiple sclerosis (principal)
CPT/HCPCS: 36415; 82784; 82785

== ENCOUNTER → 2020-11-27 13:38 | Outpatient (CLI) | payer MEDICARE, OTHER, SELFPAY ==
[2020-01-06 15:16] VITALS: BMI 31.7
[2020-11-27 16:04] LABS: Absolute Lymphocyte Count 2.05 X10^3/uL (0.83-4.51); Absolute Neutrophil Count 4.8 X10^3/uL (2.0-7.7); Basophil# 0.09 X10^3/uL; Basophil% 1.1 % (0-1); Eosinophil# 0.31 X10^3/uL; Eosinophils% 3.8 % (0-5); Hematocrit 45.6 % (40-54); Hemoglobin 15.1 g/dL (13.0-16.5); Lymphocyte # 2.05 X10^3/ul (0.83-4.51); Lymphocyte % 25.2 % (19-41); Mean Corp Hgb Conc 33.1 g/dL (32-36); Mean Corpuscular Hgb 30.6 pg (27.0-32.0); Mean Corpuscular Volume 92.3 fL (80-94); Mean Platelet Vol. 10.1 fl (6.2-12.0); Monocyte# 0.89 X10^3/uL; Monocyte% 10.9 % (0-10); NRBC Flagged by Analyzer 0 % (0-5); Neutrophil # 4.77 X10^3/uL (2.7-7.7); Neutrophil % 58.8 % (47-70); Platelet Count 335 K/mm3 (150-450); RBC Distribution Width CV 12.9 % (11.6-14.6); RBC Distribution Width SD 43.8 fl (35.1-43.9); Red Blood Count 4.94 M/mm3 (4.6-6.2); White Blood Count 8.1 K/mm3 (4.4-11.0)
[2020-11-27 16:24] LABS: ALB/GLOB Ratio 1.1 RATIO (0.9-2.4); AST(SGOT) 29 U/L (15-37); Alanine Aminotransfer ALT/SGPT 56 U/L (16-61); Alkaline Phosphatase 120 U/L (45-117); Anion Gap 6 (5-15); BUN 19 mg/dL (7-18); BUN/Creat Ratio 15.6 RATIO (10-20); Calcium,Total 9.1 mg/dL (8.5-10.1); Chloride 106 mmol/L (98-107); Creatinine, Serum 1.22 mg/dL (0.70-1.30); EST Glomerular Filtration Rate 62 mL/min (>60); Est Glom Filt Rate - Afr Amer 75 mL/min (>60); Globulin 3.6 g/dL (2.2-4.2); Glucose 136 mg/dL (74-106); Protein, Total 7.6 g/dL (6.4-8.2); Sodium Level 141 mmol/L (136-145)
[2020-11-29 04:09] LABS: Immunoglobulin A 175 mg/dL (61-437); Immunoglobulin G 1015 mg/dL (603-1613)
[2020-11-29 15:03] LABS: Immunoglobulin M 17 mg/dL (15-143)
== END ==
PROVIDERS: PCP Internal Medicine; Referring Provider Internal Medicine; Visit Provider Internal Medicine
DX: Z79.899 Other long term (current) drug therapy (principal)
CPT/HCPCS: 36415; 80053; 82784; 85025

== ENCOUNTER → 2021-03-01 10:51 | Outpatient (CLI) | payer MEDICARE, OTHER, SELFPAY ==
--- NOTE | 2021-03-01 10:52 | MRI_ITS ---
STUDY: MR Brain WO/W Contrast 03/01/2021 4:46 PM REASON FOR EXAM: Male, 71 years old. NPH, Multiple Sclerosis COMPARISON: 09/07/2019 TECHNIQUE: Standardized multiplanar fat and water weighted pulse sequences were obtained. MR Brain WO/W Contrast FINDINGS: There is disproportionate ventricular enlargement with prominence of the anterior horns and temporal tips of the bilateral lateral ventricles. There is confluent periventricular hyperintensity cloaking the lateral ventricles. There is thinning with bowing of the corpus callosum. There is moderate enlargement of the third ventricle. The findings are highly suggestive of normal pressure hydrocephalus (NPH). There are a limited number of small white matter hyperintensities, distributed throughout the deep white matter tracts of the cerebral hemispheres, consistent with mild chronic white matter ischemic changes. There is mild prominence of the vermian folia, consistent with atrophy of the vermis. The cerebellar hemispheres are normal. There are no enhancing lesions . There is no evidence for recent intracranial ischemia or other cause of cytotoxic edema on diffusion weighted imaging (DWI). Normal bilateral basal ganglia. Normal thalami. There is no extra-axial fluid accumulation. Normal flow voids within the major intracranial circulation suggesting patency by spin echo criteria. Normal sella turcica, pituitary gland, infundibular stalk, optic chiasm and hypothalamus. Normal tectal plate and pineal gland. Normal midbrain, isaias and medulla. Normal basal cisterns. Normal bilateral temporal bones. Normal bilateral internal auditory canals. No demonstrated orbital abnormality, within the constraints of a routine brain study. Normal visualized paranasal sinuses. Normal calvarium and skull base. Normal visualized soft tissue structures. Normal visualized upper cervical spine. Aspect score 10 IMPRESSION: (NOT LISTED IN ORDER OF SIGNIFICANCE) Stable ventricular dilation suggesting normal pressure hydrocephalus. Electronically Signed: Luis A Ding MD at 16:48 EDT , Service support , MRI/Brain W/WO Contrast
[2021-03-01 11:31] LABS: CREATININE FINGERSTICK 0.9 mg/dL (0.70-1.30); EGFR FINGERSTICK > 60.0000 mL/min (>60)
== END ==
PROVIDERS: PCP Internal Medicine; Referring Provider Psychiatry & Neurology Neurology; Visit Provider Psychiatry & Neurology Neurology
DX: G35 Multiple sclerosis (principal); G91.2 (Idiopathic) normal pressure hydrocephalus
CPT/HCPCS: 70553; A9575

== ENCOUNTER → 2021-05-08 12:28 | Outpatient (CLI) | payer MEDICARE, OTHER, SELFPAY ==
[2021-05-08 15:20] LABS: Absolute Lymphocyte Count 1.73 X10^3/uL (0.83-4.51); Absolute Neutrophil Count 4.6 X10^3/uL (2.0-7.7); Basophil# 0.08 X10^3/uL; Eosinophil# 0.32 X10^3/uL; Eosinophils% 4.2 % (0-5); Hematocrit 45.8 % (40-54); Hemoglobin 15.4 g/dL (13.0-16.5); Lymphocyte # 1.73 X10^3/ul (0.83-4.51); Lymphocyte % 22.5 % (19-41); Mean Corp Hgb Conc 33.6 g/dL (32-36); Mean Corpuscular Hgb 31.1 pg (27.0-32.0); Mean Corpuscular Volume 92.5 fL (80-94); Mean Platelet Vol. 10.2 fl (6.2-12.0); Monocyte# 0.94 X10^3/uL; Monocyte% 12.2 % (0-10); NRBC Flagged by Analyzer 0 % (0-5); Neutrophil # 4.59 X10^3/uL (2.7-7.7); Neutrophil % 59.8 % (47-70); Platelet Count 327 K/mm3 (150-450); RBC Distribution Width CV 12.4 % (11.6-14.6); RBC Distribution Width SD 42.4 fl (35.1-43.9); Red Blood Count 4.95 M/mm3 (4.6-6.2); White Blood Count 7.7 K/mm3 (4.4-11.0)
[2021-05-08 15:35] LABS: ALB/GLOB Ratio 0.9 RATIO (0.9-2.4); AST(SGOT) 24 U/L (15-37); Alanine Aminotransfer ALT/SGPT 43 U/L (16-61); Albumin, Serum 3.7 g/dL (3.2-5.0); Alkaline Phosphatase 102 U/L (45-117); Anion Gap 6 (5-15); BUN 20 mg/dL (7-18); BUN/Creat Ratio 17.9 RATIO (10-20); Calcium,Total 9.3 mg/dL (8.5-10.1); Chloride 107 mmol/L (98-107); Creatinine, Serum 1.12 mg/dL (0.70-1.30); EST Glomerular Filtration Rate 68 mL/min (>60); Est Glom Filt Rate - Afr Amer 83 mL/min (>60); Globulin 3.9 g/dL (2.2-4.2); Glucose 117 mg/dL (74-106); Potassium 3.8 mmol/L (3.5-5.1); Protein, Total 7.6 g/dL (6.4-8.2); Sodium Level 140 mmol/L (136-145)
[2021-05-10 05:07] LABS: Immunoglobulin A 178 mg/dL (61-437); Immunoglobulin G 913 mg/dL (603-1613)
[2021-05-10 13:16] LABS: Immunoglobulin M 16 mg/dL (15-143)
== END ==
PROVIDERS: PCP Internal Medicine
DX: Z79.899 Other long term (current) drug therapy (principal)
CPT/HCPCS: 36415; 80053; 82784; 85025

== ENCOUNTER → 2021-08-06 | Outpatient (CLI) | payer MEDICARE, OTHER, SELFPAY | END | disposition home or self-care (01) | PROVIDERS: PCP Internal Medicine | DX: D72.810 Lymphocytopenia (principal) | CPT/HCPCS: 36415 ==

== ENCOUNTER 2022-08-01 09:35 | Outpatient (CLI) | payer MEDICARE, OTHER, SELFPAY ==
[2022-08-01 10:35] LABS: Absolute Lymphocyte Count 2.04 X10^3/uL (0.83-4.51); Basophil# 0.08 X10^3/uL; Basophil% 1.1 % (0-1); Eosinophil# 0.26 X10^3/uL; Eosinophils% 3.6 % (0-5); Hemoglobin 15.2 g/dL (13.0-16.5); Lymphocyte # 2.04 X10^3/ul (0.83-4.51); Lymphocyte % 28.3 % (19-41); Mean Corpuscular Hgb 30.5 pg (27.0-32.0); Mean Corpuscular Volume 92.2 fL (80-94); Mean Platelet Vol. 9.5 fl (6.2-12.0); Monocyte# 0.77 X10^3/uL; Monocyte% 10.7 % (0-10); NRBC Flagged by Analyzer 0 % (0-5); Neutrophil # 4.03 X10^3/uL (2.7-7.7); Platelet Count 260 K/mm3 (150-450); RBC Distribution Width CV 12.6 % (11.6-14.6); RBC Distribution Width SD 42.7 fl (35.1-43.9); Red Blood Count 4.99 M/mm3 (4.6-6.2); White Blood Count 7.2 K/mm3 (4.4-11.0)
[2022-08-01 11:06] LABS: Vitamin B12 1222 pg/mL (211-911)
[2022-08-01 11:44] LABS: AST(SGOT) 17 U/L (15-37); Alanine Aminotransfer ALT/SGPT 34 U/L (16-61); Albumin, Serum 3.7 g/dL (3.2-5.0); Alkaline Phosphatase 100 U/L (45-117); Anion Gap 7 (5-15); BUN 26 mg/dL (7-18); BUN/Creat Ratio 21.8 RATIO (10-20); Calcium,Total 9.2 mg/dL (8.5-10.1); Chloride 107 mmol/L (98-107); Creatinine, Serum 1.19 mg/dL (0.70-1.30); EST Glomerular Filtration Rate 64 mL/min (>60); Est Glom Filt Rate - Afr Amer 77 mL/min (>60); Globulin 3.8 g/dL (2.2-4.2); Glucose 92 mg/dL (74-106); Magnesium 2.2 mg/dL (1.6-2.6); Protein, Total 7.5 g/dL (6.4-8.2); Sodium Level 141 mmol/L (136-145); Thyroid Stim Hormone (TSH) 1.81 uIU/mL (0.358-3.74)
[2022-08-04 08:30] LABS: Vitamin D 1,25-Dihydroxy 31.3 pg/mL (24.8-81.5)
[2022-08-06 08:58] LABS: Vitamin B1, Thiamine 120.4 nmol/L (66.5-200.0)
== END 2022-08-01 23:59 | disposition home or self-care (01) ==
PROVIDERS: PCP Internal Medicine; Visit Provider Psychiatry & Neurology Neurology
DX: G35 Multiple sclerosis (principal); F02.80 Dementia in other diseases classified elsewhere, unspecified severity, without behavioral disturbance, psychotic disturbance, mood disturbance, and anxiety; J96.90 Respiratory failure, unspecified, unspecified whether with hypoxia or hypercapnia
CPT/HCPCS: 36415; 80053; 82607; 82652; 82746; 83735; 84425; 84443; 85025

== ENCOUNTER → 2025-03-29 | Outpatient (CLI) | payer MEDICARE, OTHER, SELFPAY ==
[2025-03-29 12:56] LABS: AST(SGOT) 25 U/L (<=37); Alanine Aminotransfer ALT/SGPT 22 U/L (<=46); Albumin, Serum 4.1 g/dL (3.4-4.8); Alkaline Phosphatase 116 U/L (40-129); Anion Gap 11 (5-15); BUN 15 mg/dL (4-19); BUN/Creat Ratio 14.3 RATIO (10-20); Calcium,Total 9.3 mg/dL (7.6-11.0); Carbon Dioxide 26.6 mmol/L (21.0-32.0); Chloride 102 mmol/L (98-108); Globulin 2.7 g/dL (2.2-4.2); Glucose 96 mg/dL (70-99); Potassium 4.3 mmol/L (3.3-5.1); Vitamin D,25 Hydroxy 64.6 ng/mL (30-100)
== END | disposition home or self-care (01) ==
LOC: CIMLAB 09:36
PROVIDERS: PCP Internal Medicine; Referring Provider Internal Medicine; Visit Provider Internal Medicine
DX: E55.9 Vitamin D deficiency, unspecified (principal); E03.9 Hypothyroidism, unspecified; I10 Essential (primary) hypertension
CPT/HCPCS: 36415; 80053; 82306; 84443

== ENCOUNTER → 2025-04-11 | Outpatient (CLI) | payer MEDICARE, OTHER, SELFPAY ==
[2025-04-11 13:25] LABS: Mucous, Urine 0 SEEN /hpf (<or=2+); Red Blood Cells-Urine 0 SEEN /hpf (0-5); Squamous Epithelial Cells - UA 0 SEEN /hpf (0-5)
[2025-04-11 15:01] LABS: Color, Urine Yellow (Yellow); Glucose, Dipstick Normal (Normal); Ketone-Dipstick Negative (Negative); Leukocyte Esterase-Dipstick 500 /ul (Negative); Nitrite-Dipstick Positive (Negative); Occult Blood-Urine 50 /ul (Negative); Protein-Dipstick 30 mg/dl (Negative); Specific Gravity, Urine 1.015 (1.002-1.030); Urine Bilirubin Dipstick Negative (Negative)
== END | disposition home or self-care (01) ==
LOC: LABSPEC 13:23
PROVIDERS: PCP Internal Medicine; Referring Provider Internal Medicine; Visit Provider Internal Medicine
DX: R39.9 Unspecified symptoms and signs involving the genitourinary system (principal)
CPT/HCPCS: 81001; 87077; 87086; 87088; 87186

== ENCOUNTER 2025-04-15 16:42 | Emergency (ER) | payer MEDICARE, OTHER, SELFPAY ==
[2025-04-15 16:43] VITALS: BP 172/73; PULSE 86; RESP 18; TEMP 36.6; O2SAT 96; BMI 32.5
[2025-04-15 16:47] VITALS: BP 170/76; PULSE 84; RESP 16; TEMP 36.6; O2SAT 96
--- NOTE | 2025-04-15 17:18 | EX.ED.DYSGE1 ---
HPI History of Present Illness Chief Complaint: Complaint Detail of Chief Complaint: Suprapubic discomfort Informant: spouse/S.O. and PCP Onset/Context/Timing Onset: Weeks Context: Sudden Onset Timing: Continuous Quality: Pain Location: Localized to the suprapubic area Current Severity: History is limited because he has significant dementia Maximum Severity: Limited due to severe significant dementia Worsened by: Unknown Relieved by: Reportedly nothing Associated Symptoms Associated Symptoms: Change in color of his urine due to Pyridium Narrative Narrative: Patient is a 75-year-old male. He lives at home with his . She has to care for him. She is the primary informant. I did receive a call from Dr. Ale Linares's he prior to his arrival. Patient had a positive urine culture. He was prescribed Pyridium and ciprofloxacin. She states the culture sensitivity indicates that the organism was sensitive to the Cipro to prescribe. His first dose of Cipro was on April 10. He is on 500 mg twice daily. Patient had urinalysis on April 11, 2025. Urinalysis revealed greater than 100 WBCs and 2+ bacteria. He had no documented fever nor is he complained of fever. did not note any chills. has not noted any vomiting. He has not had any diarrhea. She states his urine is orange in color from the Pyridium. Prior similar symptoms: Yes Recent Illness/Hospitalization: Yes [facility] Medical History (Updated 04/15/25 @ 18:[address] Willie Bartholomew MD) Hypertension Problems with hearing Glaucoma History of UTI Urge incontinence of urine Hypercholesteremia Memory impairment Vitamin D deficiency Low testosterone Dysthymic ARINA on CPAP Open-angle glaucoma, mild stage Hearing loss of both ears Essential hypertension Hypothyroidism TB lung, latent Obesity Normal pressure hydrocephalus Multiple sclerosis Home Medications ?Medication ?Instructions ?Recorded ?Last Taken ?Type losartan 50 mg tablet 50 mg PO DAILY blood pressure 09/11/19 Unknown History thyroid (pork) 120 mg tablet 120 mg PO DAILY supplement 09/11/19 Unknown History latanoprost 0.005 % eye drops 1 drp EACH EYE QHS glaucoma 09/12/19 Unknown History timolol maleate 0.5 % eye drops 1 drp EACH EYE QHS glaucoma 09/12/19 Unknown History paroxetine HCl 10 mg tablet 20 mg PO DAILY mood 10/09/21 Unknown History alprazolam 1 mg tablet 1 mg PO ONCE #1 TAB 08/09/24 Unknown Rx galantamine 24 mg 24 hr 24 mg PO QAM #90 caps 12/02/24 Unknown Rx capsule,extended release memantine 10 mg tablet See Rx Instructions .Route 12/02/24 Unknown Rx .COMPLEX #180 tabs levofloxacin 500 mg tablet 500 mg PO DAILY #7 tabs 04/15/25 Unknown Rx Allergy/AdvReac Type Severity Reaction Status Date / Time No Known Allergies Allergy Verified 04/15/25 16:49 Family History Father , @71 Multiple sclerosis Mother H/O Sjogren's disease Brother Narcolepsy Son CVA (cerebral vascular accident), Onset Age: 35 Surgical History History of inguinal hernia repair Social History Smoking Status: Never smoker second hand exposure: No alcohol intake: never substance use type: does not use what type of physical activity do you participate in: none dimitris/catholic: Mennonite seatbelt use: always ROS ROS ED Review of Systems ROS Unobtainable: due to mental status and other Details: Detailed HPI narrative. is the primary informant which limits the review of system EXAM Physical Exam Const Vital Signs: 04/15/25 16:43 04/15/25 16:47 04/15/25 17:47 Temperature 98 F 98 F 97.9 F Temperature Source Oral Oral Oral Pulse Rate 86 84 70 Respiratory Rate 18 16 18 Blood Pressure 172/73 H 170/76 H 113/81 H Blood Pressure Mean 106 107 91 Pulse Ox 96 96 95 Oxygen Delivery Method Room Air Room Air Room Air 04/15/25 18:00 Temperature 97.9 F Temperature Source Oral Pulse Rate 68 Respiratory Rate 18 Blood Pressure 113/81 H Blood Pressure Mean 91 Pulse Ox 95 Oxygen Delivery Method Room Air Positive well nourished and well developed General Appearance ED: well developed, NAD and pallor HEENT Reports moist mucous membranes HEENT Narrative: Head is atraumatic and normocephalic. Ears normal. Nares patent. Posterior pharynx normal. Eyes PERRL and EOMs intact bilaterally General Eye ED: Negative for pale conjunctiva or scleral icterus Neck no lymphadenopathy, supple and no JVD Resp normal respiratory effort and clear to auscultation bilaterally Cardio regular rhythm, S1 normal heart sound, S2 normal heart sound and no murmurs GI normal to inspection, nondistended, normoactive bowel sounds, non-distended and no masses; Negative for non-tender or hepatosplenomegaly Palpation: soft and tender suprapubic Back/Spine no CVA tenderness Extremity normal to inspection Neuro No oriented x3 and CN's II-XII intact bilaterally Neuro Narrative: He is awake but not alert. He is at baseline per . Psych Psych Narrative: Difficult to assess Skin no rashes or lesions noted, no wounds and skin turgor normal General Skin Exam: pallor; Negative for jaundice MDM MDM MDM Narrative Medical decision making narrative: Reviewed records from prior laboratory studies. As noted he does have a urine that is positive for E. coli and sensitive to the ciprofloxacin he was prescribed. In spite of this he still having symptoms. His only complaint is suprapubic discomfort will have nurse perform bladder scan and obtain urinalysis to see if he still has evidence of infection. CBC was obtained for his white count differential electrolyte panel to assess renal function, electrolytes and glucose History & Record Review Additional record(s) reviewed:: Prior outpatient record (Outpatient testing November 2024. This was a minimum mental status exam to assess for dementia. He also had a mental status exam performed May 2023. Office notes from Dr. Molina from July 2021 was reviewed. He had problems with gait which was secondary to MS.) and Prior labs Lab Data Attestation: I reviewed the patient's lab results. Lab results narrative: Basic metabolic panel is normal. Labs: Laboratory Results - last 24 hr 04/15/25 04/15/25 16:50 17:15 WBC 10.5 RBC 4.88 Hgb 14.7 Hct 43.0 MCV 88.1 MCH 30.1 MCHC 34.2 RDW Std Deviation 40.7 RDW Coeff of Keke 12.7 Plt Count 343 MPV 8.9 Immature Gran % (Auto) 0.400 Neut % (Auto) 61.0 Lymph % (Auto) 24.5 [place] % (Auto) 9.8 Eos % (Auto) 3.5 Baso % (Auto) 0.8 Absolute Neuts (auto) 6.4 Absolute Lymphs (auto) 2.58 Nucleated RBC % 0 Sodium 136 Potassium 4.0 Chloride 100 Carbon Dioxide 24.8 Anion Gap 11 BUN 17 Creatinine 1.20 Estim Creat Clear Calc 61.08 Est GFR (MDRD) Non-Af 63 BUN/Creatinine Ratio 14.2 Glucose 90 Calcium 9.0 Urine Color Yellow Urine Clarity Clear Urine pH 6.0 Ur Specific Century 1.015 Urine Protein Negative Urine Glucose (UA) Normal Urine Ketones Negative Urine Occult Blood 25 H Urine Nitrite Positive H Urine Bilirubin 1 H Urine Urobilinogen 4 H Ur Leukocyte Esterase 500 H Urine RBC 0-5 SEEN Urine WBC 25-50 SEEN Ur Squamous Epith Cells 0-5 SEEN Urine Bacteria 2+ Urine Mucus 0 SEEN Urinalysis indicates he still has an infection. This is a good specimen. Will change antibiotic to levofloxacin and since he is still having symptoms and spite of appropriate antibiotics we will send a culture and sensitivity. Management Discussion w/another healthcare provider: PCP (Noted in the HPI narrative) Treatment and Re-Evaluation :: Informed and son of results. Patient be discharged to home. Discharge Plan Triage Chief Complaint: Complaint ED Provider: Willie Bartholomew Dx/Rx/DC Orders Clinical Impression: Urinary tract infection, Dementia, Multiple sclerosis, Abnormality of gait and mobility Instructions: ED Bladder Infection, Male (Adult) Prescriptions: New levofloxacin 500 mg tablet 500 mg PO DAILY Qty: 7 0RF No Action alprazolam 1 mg tablet 1 mg PO ONCE Qty: 1 0RF Rx Instructions: Take 1 tablet orally 30 minutes prior to MRI. galantamine 24 mg capsule,ext rel. pellets 24 hr 24 mg PO QAM Qty: 90 3RF Rx Instructions: Administer with breakfast memantine 10 mg tablet See Rx Instructions .ROUTE .COMPLEX Qty: 180 3RF Dose Instruction: TAKE 1 TABLET BY MOUTH TWICE A DAY Rx Instructions: TAKE 1 TABLET BY MOUTH TWICE A DAY losartan 50 MG tablet 50 mg PO DAILY thyroid (pork) 120 MG tablet 120 mg PO DAILY latanoprost 1 DROP bottle 1 drp EACH EYE QHS timolol maleate 1 DROP drops 1 drp EACH EYE QHS paroxetine HCl 10 mg tablet 20 mg PO DAILY Primary Care Provider: Ale Linares Referrals: Ale Linares MD [Primary Care Provider, Internal Medicine] - 3-5 Days if not improving Print Language: Bol[place]ian Disposition Disposition: Home, Self Care
[2025-04-15 17:23] LABS: Anion Gap 11 (5-15); BUN 17 mg/dL (4-19); BUN/Creat Ratio 14.2 RATIO (10-20); Calcium,Total 9.0 mg/dL (7.6-11.0); Carbon Dioxide 24.8 mmol/L (21.0-32.0); Chloride 100 mmol/L (98-108); Estimated Creatinine Clearance 61.08 ml/min (50-250); Glucose 90 mg/dL (70-99); Potassium 4.0 mmol/L (3.3-5.1)
[2025-04-15 17:24] LABS: Mucous, Urine 0 SEEN /hpf (<or=2+)
[2025-04-15 17:31] LABS: Hematocrit 43.0 % (40-54); Hemoglobin 14.7 g/dL (13.0-16.5); Immature Granulocytes Count 0.040 X10^3/uL (0.0-0.0); Mean Corp Hgb Conc 34.2 g/dL (32-36); Mean Corpuscular Volume 88.1 fL (80-94); Mean Platelet Vol. 8.9 fl (6.2-12.0); NRBC Flagged by Analyzer 0 % (0-5); Platelet Count 343 K/mm3 (150-450); RBC Distribution Width CV 12.7 % (11.6-14.6); RBC Distribution Width SD 40.7 fl (35.1-43.9); Red Blood Count 4.88 M/mm3 (4.6-6.2); White Blood Count 10.5 K/mm3 (4.4-11.0)
[2025-04-15 17:41] LABS: Color, Urine Yellow (Yellow); Glucose, Dipstick Normal (Normal); Ketone-Dipstick Negative (Negative); Leukocyte Esterase-Dipstick 500 /ul (Negative); Nitrite-Dipstick Positive (Negative); Occult Blood-Urine 25 /ul (Negative); Protein-Dipstick Negative (Negative); Specific Gravity, Urine 1.015 (1.002-1.030); Urine Bilirubin Dipstick 1 mg/dL (Negative)
[2025-04-15 17:47] VITALS: BP 113/81; PULSE 70; RESP 18; TEMP 36.6; O2SAT 95
[2025-04-15 18:00] VITALS: BP 113/81; PULSE 68; RESP 18; TEMP 36.6; O2SAT 95
[2025-04-15 18:09] LABS: Red Blood Cells-Urine 0-5 SEEN /hpf (0-5)
[2025-04-15 18:11] LABS: Squamous Epithelial Cells - UA 0-5 SEEN /hpf (0-5)
[2025-04-15 18:51] VITALS: BP 119/84; PULSE 70; RESP 16; TEMP 36.6; O2SAT 95
== END 2025-04-15 18:51 | disposition home or self-care (01) ==
PROVIDERS: Emergency Provider Emergency Medicine; PCP Internal Medicine; Visit Provider Emergency Medicine
DX: N39.0 Urinary tract infection, site not specified (principal); F03.90 Unspecified dementia, unspecified severity, without behavioral disturbance, psychotic disturbance, mood disturbance, and anxiety; E78.00 Pure hypercholesterolemia, unspecified; G35.D Multiple sclerosis, unspecified; I10 Essential (primary) hypertension; R26.9 Unspecified abnormalities of gait and mobility
CPT/HCPCS: 80048; 81001; 85025; 99284; A4216